=== PATIENT | female | born 1970 | race Caucasian/White ===

== ENCOUNTER → 2016-08-27 | Outpatient (CLI) | payer BC ==
--- NOTE | 2016-08-28 11:04 | MM ---
Reason for exam: screening (asymptomatic). Last mammogram was performed 1 year and 2 months ago. History: Patient had first child at age 37. Physical Findings: A clinical breast exam by your physician is recommended on an annual basis and results should be correlated with mammographic findings. MG Screening Mammo w CAD Bilateral CC and MLO view(s) were taken. Prior study comparison: July 05, 2015, left breast MG work up mamm w CAD LT. June 26, 2015, bilateral MG screening mammo w CAD. The breast tissue is extremely dense which could obscure a lesion on mammography. No significant changes when compared with prior studies. ASSESSMENT: Benign, BI-RAD 2 RECOMMENDATION: Routine screening mammogram of both breasts in 1 year.
== END | disposition home or self-care (01) ==
LOC: RADMAMWWP 14:56
PROVIDERS: ATTEND Family Medicine
DX: Z12.31 Encounter for screening mammogram for malignant neoplasm of breast (principal)

== ENCOUNTER → 2017-07-21 | Outpatient (CLI) | payer OTHER ==
--- NOTE | 2017-07-21 20:08 | MR ---
EXAMINATION TYPE: MR knee LT wo con DATE OF EXAM: 07/21/2017 COMPARISON: Outside radiographs 07/01/2012 HISTORY: 47-year-old female pain in left knee TECHNIQUE: Multiplanar, multisequence imaging of the left knee is performed without IV contrast. FINDINGS: There is prominent fluid signal along the ACL. The majority of the fibers are intact. There is some u ndulation of the far anterior most fibers suggesting a partial tear. PCL, MCL, and LCL complex are intact. There is thickening and heterogeneous signal of the anterior root of the medial meniscus. The remaind er of the meniscus remains intact. There is focal subchondral marrow signal changes and mild localize d edema along the periphery of the medial tibial plateau. Associated cartilage thinning. Measuring ap proximately 8 x 9 mm. There is a multilocular para meniscal cyst along the anterior root of the lateral meniscus measuring up to 1.2 cm. There is abnormal signal extending along the anterior horn of the lateral meniscus. No displaced or extruded meniscal fragments. Overall lateral compartment articular cartilage volume is m aintained. Patellofemoral compartment articular cartilage is maintained. Extensor mechanism is intact but with moderate intermediate signal of the mid deep patellar tendon fi bers at the patellar origin. Small knee joint effusion without Beltre's cyst. Nonspecific mild anterior infrapatellar subcutaneous soft tissue swelling. Normal popliteal artery anatomy and muscle bulk. No suspicious bone marrow replacement. IMPRESSION: 1. Undulation to the anterior most ACL fibers suggesting small partial thickness ACL tear. The majori ty of the ACL remains intact. 2. A 1.2 cm parameniscal cyst along the anterior horn of the lateral meniscus with associated partial anterior root tear extending into the anterior horn. 3. Extensive degenerative signal likely with a partial anterior root tear of the medial meniscus as w ell. There is focal moderate cartilage loss along the periphery of the medial compartment measuring 8 x 9 mm. 4. Mild to moderate proximal patellar tendinosis and small knee joint effusion.
== END | disposition home or self-care (01) ==
LOC: RADMRIMAIN 13:33
PROVIDERS: ATTEND Orthopaedic Surgery
DX: S83.282A Other tear of lateral meniscus, current injury, left knee, initial encounter (principal); M76.52 Patellar tendinitis, left knee

== ENCOUNTER → 2017-09-15 | Outpatient (CLI) | payer BC ==
--- NOTE | 2017-09-17 11:49 | MM ---
Reason for exam: screening (asymptomatic). Last mammogram was performed 1 year and 1 month ago. History: Patient had first child at age 37. Physical Findings: A clinical breast exam by your physician is recommended on an annual basis and results should be correlated with mammographic findings. MG Screening Mammo w CAD Bilateral CC and MLO view(s) were taken. Prior study comparison: August 27, 2016, bilateral MG screening mammo w CAD. July 05, 2015, left breast MG work up mamm w CAD LT. The breast tissue is heterogeneously dense. This may lower the sensitivity of mammography. No significant changes when compared with prior studies. ASSESSMENT: Negative, BI-RAD 1 RECOMMENDATION: Routine screening mammogram of both breasts in 1 year.
== END | disposition home or self-care (01) ==
LOC: RADMAMWWP 14:06
PROVIDERS: ATTEND Family Medicine
DX: Z12.31 Encounter for screening mammogram for malignant neoplasm of breast (principal)
CPT/HCPCS: 77067

== ENCOUNTER → 2018-08-10 | Outpatient (CLI) | payer BC ==
[2018-08-10 16:53] LABS: Basophils % (A) 0 %; Eosinophils # (A) 0.2 k/uL (0-0.7); Eosinophils % (A) 3 %; HCT 37.7 % (34.0-46.0); HGB 12.3 gm/dL (11.4-16.0); Lymphocytes # (A) 1.8 k/uL (1.0-4.8); Lymphocytes % (A) 23 %; MCH 29.6 pg (25.0-35.0); MCHC 32.7 g/dL (31.0-37.0); MCV 90.6 fL (80.0-100.0); Mean Platelet Volume 7.2; Monocytes # (A) 0.4 k/uL (0-1.0); Monocytes % (A) 6 %; Neutrophils # (A) 5.1 k/uL (1.3-7.7); Neutrophils % (A) 67 %; Platelet Count 241 k/uL (150-450); RBC 4.16 m/uL (3.80-5.40); WBC 7.6 k/uL (3.8-10.6)
[2018-08-10 17:04] LABS: Potassium 3.7 mmol/L (3.5-5.1)
== END ==
LOC: LABPAT 16:04
PROVIDERS: ATTEND Orthopaedic Surgery
DX: Z01.818 Encounter for other preprocedural examination (principal); Z01.812 Encounter for preprocedural laboratory examination; M23.92 Unspecified internal derangement of left knee
CPT/HCPCS: 36415; 80051; 85025; 93005

== ENCOUNTER → 2018-08-16 | Outpatient (CLI) | payer BC ==
--- NOTE | 2018-08-16 22:50 | MR ---
EXAMINATION TYPE: MR knee RT wo con DATE OF EXAM: 08/16/2018 COMPARISON: Outside right knee x-ray August 03, 2018 HISTORY: Rt knee pain per order. Outer pain and swelling after slipping injury per patient. TECHNIQUE: Multiplanar, multisequence images of the knee is performed without IV contrast. FINDINGS: MEDIAL MENISCUS: Anterior and posterior horns are intact without tear. LATERAL MENISCUS: Anterior and posterior horns are intact without tear. CRUCIATE LIGAMENTS: The anterior and posterior cruciate ligaments are intact. Anterior cruciate ligam ent shows slightly more vertical course and proximal thickening. COLLATERAL LIGAMENTS: The medial collateral ligament and lateral collateral ligament complex are inta ct and unremarkable. EXTENSOR MECHANISM: Visualized quadriceps and patellar tendons are intact. EFFUSION: There is small suprapatellar joint effusion. POPLITEAL CYST: No popliteal/antonio cyst. TRICOMPARTMENT SPACES: Mild spurring patellofemoral compartment. Tricompartment joint spaces are fair ly well-maintained. CARTILAGE: Tricompartment articular cartilage is fairly well preserved. No significant chondromalacia patella. BONE MARROW SIGNAL: A 1.1 cm oval T1 hypointense and T2 hyperintense heterogeneous lesion medial prox imal tibial metaphysis corresponds to sclerotic lesion on x-ray favored enchondroma or other benign e tiology. OTHER: Some increased fluid signal throughout Hoffa's fat pad is present with 8 mm thin-walled cyst i n the deep aspect sagittal image 19. IMPRESSION: Correlate for Hoffa's fat pad impingement syndrome. Mild degenerative changes. Small supr apatellar joint effusion. No meniscal or ligamentous tear is clearly seen.
== END | disposition home or self-care (01) ==
LOC: RADMRIMAIN 15:29
PROVIDERS: ATTEND Orthopaedic Surgery
DX: M17.11 Unilateral primary osteoarthritis, right knee (principal)

== ENCOUNTER → 2018-08-18 | Day surgery (SDC) | payer BC ==
[2018-08-13 15:23] VITALS: BMI 33.3
--- NOTE | 2018-08-17 14:23 | HP ---
HISTORY AND PHYSICAL DATE OF SURGERY: 08/18/2018 Cori Stone is a 48-year-old patient seen with progressive left knee pain. After treatment options were discussed, patient elected to proceed with arthroscopy. Consent was obtained. PAST MEDICAL HISTORY: Hypertension. PAST SURGICAL HISTORY: Wrist surgery. DAILY MEDICATIONS: Lisinopril. ALLERGIES: None. SOCIAL HISTORY: Patient denies tobacco use. PHYSICAL EVALUATION OF THE LEFT KNEE: Range of motion is 0 to 130 degrees. There is a mild effusion present. Tenderness along the medial and lateral joint lines. Positive medial Barbara's. Positive lateral Barbara's. Plus one Molina. Collateral ligament is stable, hip rotation without pain. Distal neurovascular exam intact. LEFT KNEE RADIOGRAPHS: Revealed mild osteoarthritic changes. Left knee MRI revealed medial and lateral meniscal tear as well as a partial anterior cruciate ligament tear. IMPRESSION: Internal derangement, left knee with medial and lateral meniscal tears. PLAN: Left knee arthroscopy with partial meniscectomy and debridement. MMODL / IJN: [id number] /
[~2018-08-18] MED LIST: BUPIVACAIN-EPI 0.25%-1:200,000 30 ML VIAL SQ ONE; DEXAMETHASONE SOD PHOSPHATE 10 MG/ML 1 ML VIAL IV ONE; HYDROmorphone 0.5 MG/0.5 ML SYRINGE IVP PRN; LACTATED RINGERS 1,000 ML IV SCH; LIDOCAINE 1% 20 ML VIAL (10MG/ML) FOR IV START INTRADERMA PRN; LIDOCAINE 1% INJ 10MG/ML (20 ML MDV) ONE; MIDAZOLAM 2 MG/2 ML VIAL ONE; ONDANSETRON 4 MG/2 ML VIAL IVP ONE; PROPOFOL 10 MG/ML 20 ML VIAL IV ONE; SCOPOLAMINE 1.5MG/72HR PATCH TRANSDERM ONE; ceFAZolin IN SWFI 2 GM/20 ML SYRINGE IVP ONE; fentaNYL (PF) 50 MCG/ML 2 ML AMP ONE
[2018-08-18 12:45] VITALS: RESP 16; TEMP 97.7
--- NOTE | 2018-08-18 12:46 | P.OP ---
Date of Procedure: 08/18/18 Preoperative Diagnosis: Internal derangement left knee Postoperative Diagnosis: 1. Tear medial meniscus left knee 2. Grade 2/3 chondromalacia medial femoral condyle left knee 3. Reactive synovitis medial, lateral and suprapatellar compartments left knee Procedure(s) Performed: 1. Arthroscopic partial medial meniscectomy left knee 2. Arthroscopic chondroplasty medial femoral condyle left knee 3. Arthroscopic partial synovectomy medial, lateral and suprapatellar left knee Anesthesia: LISAA, local Surgeon: Gonzalo Pate Estimated Blood Loss (ml): 8 Pathology: none sent Condition: stable Disposition: PACU Indications for Procedure: 48-year-old patient seen with progressive left knee pain. After having treatment options discussed, she elected to proceed with arthroscopy. Operative Findings: See description of procedure Description of Procedure: Patient was taken to the operative suite. Patient underwent a general anesthetic by the department of anesthesia. Patient was given preoperative antibiotics. The left lower extremity was placed in a well-padded arthroscopic leg dent. The left leg was prepped and draped in the normal sterile orthopedic fashion. A lateral parapatellar and suprapatellar incision was made. Trochars were inserted. Arthroscopy was initiated. Suprapatellar pouch revealed diffuse thick reactive synovitis. The patellofemoral joint appeared to articulate congruently. There as grade 1 chondromalacia the patella. The scope was guided into the medial gutter. No loose bodies or plica were identified. The scope was then guided into the medial compartment. A medial parapatellar incision was made. Trocar inserted followed by probe. There was a complex tear involving the posterior horn medial meniscus. There were grade 2/3 chondromalacia changes the medial femoral condyle with some osteochondral tears present. There was thick reactive synovitis anteriorly. I performed a partial medial meniscectomy down to stable tissue. I performed a chondroplasty of the medial femoral condyle down to stable tissue I performed a partial synovectomy decompressing the reactive synovitis. The residual meniscus was stable. The residual osteochondral surface was stable. There was good decompression of the synovitis. Scope and probe were then guided into the intercondylar notch. Cruciates were identified, probed and found to be stable. The scope and probe were then guided into lateral compartment. There was some mild superficial fraying of the lateral meniscus midbody area. There was reactive synovitis anteriorly. There is mild grade 1 chondral malacia changes. No osteochondral tears were present. I debrided the superficial fraying with a motorized shaver. I performed a partial synovectomy decompressing the reactive synovitis. The shaver was removed. There was good decompression of the synovitis. The scope was in guided back into the suprapatellar compartment. I introduced a motorized shaver into the super patellar compartment. I debrided some piecemeal fragments of meniscus I encountered. I performed a partial synovectomy. The shaver was removed. There was good decompression of synovitis. I took one more look on the entire knee, no residual debris. Instruments were now removed from the joint. The joint was infiltrated with .25% Marcaine. Steri-Strips were applied to the portal sites. Sterile dressings were applied. The patient was placed into a SHANI hose. No tourniquet was utilized. The patient was awakened, transferred to a bed and taken to recovery stable satisfactory condition.
[2018-08-18 13:57] VITALS: BP 124/81; PULSE 81
== END | disposition home or self-care (01) ==
LOC: OR 09:48
PROVIDERS: ATTEND Orthopaedic Surgery
DX: S83.242A Other tear of medial meniscus, current injury, left knee, initial encounter (principal); X58.XXXA Exposure to other specified factors, initial encounter; M94.262 Chondromalacia, left knee; M65.862 Other synovitis and tenosynovitis, left lower leg; I10 Essential (primary) hypertension; Z79.899 Other long term (current) drug therapy; Z79.1 Long term (current) use of non-steroidal anti-inflammatories (NSAID)
CPT/HCPCS: 81025; 29881; 29876; J2250; J1100; J2405; J2001; J3010; J2704; J1170; J0690

== ENCOUNTER → 2019-09-19 | Outpatient (CLI) | payer BC ==
--- NOTE | 2019-09-21 11:03 | MM ---
Reason for exam: screening (asymptomatic). Last mammogram was performed 2 years ago. History: Patient had first child at age 37. Physical Findings: A clinical breast exam by your physician is recommended on an annual basis and results should be correlated with mammographic findings. MG Screening Mammo w CAD Bilateral CC and MLO view(s) were taken. Prior study comparison: September 15, 2017, bilateral MG screening mammo w CAD. August 27, 2016, bilateral MG screening mammo w CAD. The breast tissue is heterogeneously dense. This may lower the sensitivity of mammography. No significant changes when compared with prior studies. ASSESSMENT: Negative, BI-RAD 1 RECOMMENDATION: Routine screening mammogram of both breasts in 1 year.
== END | disposition home or self-care (01) ==
LOC: RADMAMWWP 14:06
PROVIDERS: ATTEND Obstetrics & Gynecology
DX: Z12.31 Encounter for screening mammogram for malignant neoplasm of breast (principal)
CPT/HCPCS: 77067

== ENCOUNTER 2019-11-11 10:38 | Emergency (ER) | payer BC ==
[2019-11-11 10:47] VITALS: BP 117/80; PULSE 80; RESP 18; TEMP 98.3
[2019-11-11] MEDS ORDERED: KETOROLAC 15 MG/ML 1 ML VIAL IM STA (11:20)
--- NOTE | 2019-11-11 11:34 | ED ---
Back Pain HPI - General Chief Complaint: Back Pain/Injury Stated Complaint: Back pain Passing out Time Seen by Provider: 11/11/19 10:54 Source: patient Limitations: no limitations - History of Present Illness Initial Comments: Patient is a 49-year-old female presenting to emergency Department with complaints of right-sided sciatic pain that has been increasing over the past few weeks. Patient states she has dealt with this over the past 10 years with mild flareups here and there. Patient states last few weeks she has noticed that the pain has been increasing, she did go to her PCP last week and did receive a pain injection as well as started on a steroid Dosepak. Patient states the pain did improve very slightly but then last 2 days has increased again. Patient states she did go to a chiropractor this week and feels like that worsened her symptoms. She's been trying ice and heat to the area without relief. She denies any falls or trauma. She did state that today when she was in the shower after she got out she feels that she might a passed out secondary to the pain. She denies any other injuries from this fall. She states that her PCP did send her a prescription for physical therapy which she is awaiting an appointment for. She denies any bowel or bladder incontinence, any fever or chills. She denies any abdominal pain, nausea or vomiting. She has no further complaints at this time. Upon arrival to the ER, her vital signs are stable. - Related Data Home Medications Medication Instructions Recorded Confirmed HYDROcodone/APAP 10-325MG [[place] 1 tab PO DIRECTED PRN 08/13/18 08/18/18 10-325] Ibuprofen [Motrin] 800 mg PO BID 08/18/18 08/18/18 Previous Rx's Medication Instructions Recorded Cyclobenzaprine [Flexeril] 5 mg PO BID PRN #10 tablet 11/11/19 predniSONE [Deltasone] 20 mg PO BID 5 Days #10 tab 11/11/19 Allergies Allergy/AdvReac Type Severity Reaction Status Date / Time No Known Allergies Allergy Verified 11/11/19 10:47 Review of Systems ROS Statement: Those systems with pertinent positive or pertinent negative responses have been documented in the HPI. ROS Other: All systems not noted in ROS Statement are negative. Past Medical History Past Medical History: Hypertension History of Any Multi-Drug Resistant Organisms: None Reported Past Surgical History: Orthopedic Surgery Additional Past Surgical History / Comment(s): knee, wrist Past Psychological History: Anxiety Smoking Status: Never smoker Past Alcohol Use History: None Reported Past Drug Use History: None Reported General Exam - General Exam Comments Initial Comments: GENERAL: Patient is well-developed and well-nourished. Patient is nontoxic and in no acute distress. HEAD: Atraumatic, normocephalic. EYES: Pupils equal round and reactive to light, extraocular movements intact, sclera anicteric, conjunctiva are normal. Eyelids were unremarkable. ENT: TMs normal, nares patent, oropharynx clear without exudates. Moist mucous membranes. NECK: Normal range of motion, supple without lymphadenopathy or JVD. LUNGS: Unlabored respirations. Breath sounds clear to auscultation bilaterally and equal. No wheezes rales or rhonchi. HEART: Regular rate and rhythm without murmurs, rubs or gallops. ABDOMEN: Soft, nontender, normoactive bowel sounds. No guarding, no rebound. No masses appreciated. : Deferred MUSCULOSKELETAL: Patient has full strength of her lower extremities bilaterally, sensation is equal and bilateral. She has strong glue contraction bilaterally. Patient is tender to palpation of the right sciatic area. No clubbing or cyanosis. NEUROLOGICAL: Patient is alert and oriented x 3. Motor and sensory are also intact. Symmetrical smile. Normal speech, normal gait. PSYCH: Normal mood, normal affect. SKIN: Warm, Dry, normal turgor, no rashes or lesions noted. Limitations: no limitations Course Vital Signs 11/11/19 10:41 Temperature 98.3 F Pulse Rate 80 Respiratory 18 Rate Blood Pressure 117/80 O2 Sat by Pulse 99 Oximetry Medical Decision Making - Medical Decision Making Patient is a 41-year-old female here for increasing right sciatic pain over the past few weeks. She did go to her PCP and received Toradol and steroid Dosepak. Patient denies taking any other pain medicines at home however I did check her MAPS and she does have a prescription for [place] 10's she gets monthly from her PCP. X-rays of her lumbar area revealed no acute fractures, dislocations, normal alignment. I did give patient Toradol injection today. We'll also restart her on a steroid treatment and give a short prescription for muscle relaxer. Recommended following back up with PCP for possible physical therapy. Continue with alternating heat and ice to the area, gentle stretching. Patient stable for discharge, she is in agreement with this plan of care. Return parameters were discussed with the patient she verbalized understanding. - EKG Data EKG Comments: Normal sinus rhythm, normal ECG, no signs of acute ischemia. Ventricular rate 74, ND interval 150, QTC 408. Disposition Clinical Impression: Right sciatic nerve pain Disposition: HOME SELF-CARE Condition: Stable Instructions (If sedation given, give patient instructions): Sciatica (ED) Additional Instructions: Please return to the Emergency Department if symptoms worsen or any other concerns. Take steroids as prescribed, may try muscle relaxer at night for relief. Follow-up with PCP, for PT, as discussed. Prescriptions: predniSONE [Deltasone] 20 mg PO BID 5 Days #10 tab Cyclobenzaprine [Flexeril] 5 mg PO BID PRN #10 tablet PRN Reason: Muscle Spasm Is patient prescribed a controlled substance at d/c from ED?: No Referrals: Ramon Burgess MD [Primary Care Provider] - 1-2 days
--- NOTE | 2019-11-11 12:03 | XR ---
EXAMINATION TYPE: XR lumbar spine 2 or 3V DATE OF EXAM: 11/11/2019 Comparison: None Clinical History: 49-year-old female pain Findings: 5 lumbar type vertebral bodies. Vertebral body heights are preserved and alignment is maintained. Mil d facet arthropathy lower lumbar spine. Disc interspaces relatively maintained. Impression: Mild facet arthropathy lower lumbar spine. No vertebral compression collapse or malalignment.
== END 2019-11-11 12:34 | disposition home or self-care (01) ==
LOC: EC 10:38
DX: M54.31 Sciatica, right side (principal); X58.XXXA Exposure to other specified factors, initial encounter
CPT/HCPCS: 99283 ×2; 96372 ×2; 93005; 72100; J1885

== ENCOUNTER → 2019-12-30 | Outpatient (CLI) | payer BC ==
--- NOTE | 2019-12-30 09:13 | MR ---
EXAMINATION TYPE: MR lumbar spine wo con DATE OF EXAM: 12/30/2019 COMPARISON: Plain film 11/11/2019 HISTORY: Low back pain into rt leg since October TECHNIQUE: Multiplanar, multisequence images of the lumbar spine were acquired. L1-L2: Normal disc appearance without desiccation. No herniation, protrusion or disc bulging. No ca nal stenosis is present. Foramina are patent bilaterally. L2-L3: Normal disc appearance without desiccation. No herniation, protrusion or disc bulging. No ca nal stenosis is present. Foramina are patent bilaterally. L3-L4: Normal disc appearance without desiccation. No herniation, protrusion or disc bulging. No ca nal stenosis is present. Foramina are patent bilaterally. L4-L5: Normal disc appearance without desiccation. No herniation, protrusion or disc bulging. No ca nal stenosis is present. Foramina are patent bilaterally. L5-S1: There is loss of disc height and signal present, right posterior paracentral disc protrusion i s present possibly contacting the proximal S1 nerve root, there is some mild deformity of the anterol ateral thecal sac. Lumbar segments are intact. No paraspinal masses are identified. Conus medullaris has a normal appe arance. Lumbar vertebral bodies show preserved height, alignment, bone marrow signal is remarkable fo r hemangiomas within the L2, T12 vertebral bodies, focal areas of increased signal on T1 and T2-weigh barb sequences. Mild spondylosis, endplate discogenic marrow signal changes are present. IMPRESSION: Disc protrusion L5-S1, correlate for right S1 radiculopathy.
== END | disposition home or self-care (01) ==
LOC: RADMRIMAIN 07:32
PROVIDERS: ATTEND Family Medicine
DX: M51.17 Intervertebral disc disorders with radiculopathy, lumbosacral region (principal)
CPT/HCPCS: 72148

== ENCOUNTER 2020-02-23 06:26 | Day surgery (SDC) | payer BC ==
[2020-02-21 14:22] VITALS: BMI 31.7
[~2020-02-23 06:26] MED LIST changes: -BUPIVACAIN-EPI 0.25%-1:200,000 30 ML VIAL SQ ONE; -DEXAMETHASONE SOD PHOSPHATE 10 MG/ML 1 ML VIAL IV ONE; -HYDROmorphone 0.5 MG/0.5 ML SYRINGE IVP PRN; -LIDOCAINE 1% 20 ML VIAL (10MG/ML) FOR IV START INTRADERMA PRN; -LIDOCAINE 1% INJ 10MG/ML (20 ML MDV) ONE; -MIDAZOLAM 2 MG/2 ML VIAL ONE; -ONDANSETRON 4 MG/2 ML VIAL IVP ONE; -PROPOFOL 10 MG/ML 20 ML VIAL IV ONE; -SCOPOLAMINE 1.5MG/72HR PATCH TRANSDERM ONE; -ceFAZolin IN SWFI 2 GM/20 ML SYRINGE IVP ONE; -fentaNYL (PF) 50 MCG/ML 2 ML AMP ONE
[2020-02-23 06:57] VITALS: TEMP 98.1
[2020-02-23] MEDS ORDERED: LIDOCAINE 1% (10MG/ML) FOR IV START INTRADERMA ONE (06:59)
[2020-02-23] MEDS ORDERED: MIDAZOLAM 2 MG/2 ML VIAL ONE (07:06)
[2020-02-23] MEDS ORDERED: methylPREDNISolone ACETATE 80 MG/ML 1 ML VIAL ONE (07:06)
[2020-02-23] MEDS ORDERED: IOPAMIDOL M200 10 ML VIAL ONE (07:06)
[2020-02-23] MEDS ORDERED: ROPIVACAINE 5MG/ML 20ML VIAL ONE (07:06)
[2020-02-23] MEDS ORDERED: fentaNYL (PF) 50 MCG/ML 2 ML AMP ONE (07:06)
[2020-02-23] MEDS ORDERED: IV FLUID CONTINUATION 1,000 ML IV ONE (07:24)
--- NOTE | 2020-02-23 07:24 | P.PCN ---
Date of Procedure: 02/23/20 Procedure(s) Performed: PREOPERATIVE DIAGNOSIS: Lumbar radiculopathy . POSTOPERATIVE DIAGNOSIS: Same as preoperative diagnoses. PROCEDURE 1. Transforaminal epidural steroid injection under fluoroscopic guidance at right L5-S1 level. (Fluoroscopy images stored on file in the radiology Department ) 2. Lumbar epidurogram . ANESTHESIA: Local with 1% lidocaine 3 ml , moderate sedation with intravenous Versed 2 mg and fentanyle 50 micrograms. EBL: Minimal PROCEDURE INDICATION: The patient with low back pain and radiculopathy symptoms unresponsive to conservative treatment. PROCEDURE DESCRIPTION / TECHNIQUE: The patient was seen and identified in the preoperative area. Risks, benefits, complications, and alternatives were discussed with the patient. The patient agreed to proceed with the procedure and signed the consent. IV was started, and vital signs were stable. Patient was taken to the OR and time out was completed. The patient was placed in the prone position on procedure table and a pillow was placed under the abdomen to reduce lumbar lordosis. The lumbosacral area was prepped and draped in the usual sterile fashion. Critical pause was taken. Vital signs were closely monitored during the procedure. Conscious sedation was used during the procedure to decrease patient s anxiety. Using oblique fluoroscopy, the chin of the ``Loc dog at Right L5-S1 level was identified, and the skin and deeper tissues just below was localized with 1% lidocaine. Subsequently, a 22-gauge 3.5-inch spinal needle was advanced under a tunneled view fluoroscopic guidance just underneath the chin of the ``Loc dog at the right L5-S1 Under lateral fluoroscopy, the needle was then advanced to the posterior border of the interforaminal space. After negative aspiration of CSF and blood and with no paresthesias, 1 mL Isovue 200 contrast dye was injected excellent epidurogram and outlining of the nerve root Subsequently, 3 mL of block solution containing 80 mg Depo-Medrol and 2 mL of 0.9% normal saline PF was injected. Needle was removed . At the end of the procedure, skin was cleansed, and bandages were applied. COMPLICATIONS:none DISPOSITION / PLANS: The patient was placed in a supine position and transferred to the recovery area in a stable condition for observation. There was no evidence of lower extremity motor or sensory deficit after the procedure. Patient was discharged from the recovery room after meeting discharge criteria. Home discharge instructions were given to the patient by the staff. The patient was reexamined prior to discharge.
[2020-02-23 07:28] VITALS: RESP 14
[2020-02-23 07:38] VITALS: BP 112/72; PULSE 65
--- NOTE | 2020-02-23 09:21 | FL ---
EXAMINATION TYPE: FL guided pain mgmt statistic DATE OF EXAM: 02/23/2020 HISTORY: Fluoroscopy time 5 seconds of fluoroscopy provided. IMPRESSION: 1. Fluoroscopy time.
== END 2020-02-23 07:55 ==
LOC: ORPAIN 06:26
PROVIDERS: ATTEND Specialist
DX: M54.16 Radiculopathy, lumbar region (principal)
CPT/HCPCS: 81025; 64483; J2250; J1040; J3010; Q9966; J2795

== ENCOUNTER 2020-03-23 08:37 | Day surgery (SDC) | payer BC ==
[2020-03-20 15:18] VITALS: BMI 31.6
[2020-03-23 08:56] VITALS: TEMP 97.8
[2020-03-23] MEDS ORDERED: MIDAZOLAM 2 MG/2 ML VIAL ONE (09:45)
[2020-03-23] MEDS ORDERED: methylPREDNISolone ACETATE 40 MG/ML 1 ML VIAL ONE (09:45)
[2020-03-23] MEDS ORDERED: IOPAMIDOL M200 10 ML VIAL ONE (09:45)
[2020-03-23] MEDS ORDERED: fentaNYL (PF) 50 MCG/ML 2 ML AMP ONE (09:45)
--- NOTE | 2020-03-23 10:00 | P.PCN ---
Date of Procedure: 03/23/20 Procedure(s) Performed: PREOPERATIVE DIAGNOSIS: Lumbar radiculopathy . POSTOPERATIVE DIAGNOSIS: Same as preoperative diagnoses. PROCEDURE 1. Transforaminal epidural steroid injection under fluoroscopic guidance at right L5-S1 level. (Fluoroscopy images stored on file in the radiology Department ) 2. Lumbar epidurogram . # 2nd ANESTHESIA: Local with 1% lidocaine 3 ml , moderate sedation with intravenous Versed 2 mg and fentanyle 100 micrograms. EBL: Minimal PROCEDURE INDICATION: The patient with low back pain and radiculopathy symptoms unresponsive to conservative treatment. PROCEDURE DESCRIPTION / TECHNIQUE: The patient was seen and identified in the preoperative area. Risks, benefits, complications, and alternatives were discussed with the patient. The patient agreed to proceed with the procedure and signed the consent. IV was started, and vital signs were stable. Patient was taken to the OR and time out was completed. The patient was placed in the prone position on procedure table and a pillow was placed under the abd omen to reduce lumbar lordosis. The lumbosacral area was prepped and draped in the usual sterile fashion. Critical pause was taken. Vital signs were closely monitored during the procedure. Conscious sedation was used during the procedure to decrease patient s anxiety. Using oblique fluoroscopy, the chin of the `Congy dog at Right L5-S1 level was identified, and the skin and deeper tissues just below was localized with 1% lidocaine. Subsequently, a 22-gauge 3.5-inch spinal needle was advanced under a tunneled view fluoroscopic guidance just underneath the chin of the `Congy dog at the right L5-S1 Under lateral fluoroscopy, the needle was then advanced to the posterior border of the interforaminal space. After negative aspiration of CSF and blood and with no paresthesias, 1 mL Isovue 200 contrast dye was injected excellent epidurogram and outlining of the nerve root Subsequently, 3 mL of block solution containing 80 mg Depo-Medrol and 2 mL of 0.9% normal saline PF was injected. Needle was removed . At the end of the procedure, skin was cleansed, and bandages were applied. COMPLICATIONS:none DISPOSITION / PLANS: The patient was placed in a supine position and transferred to the recovery area in a stable condition for observation. There was no evidence of lower extremity motor or sensory deficit after the procedure. Patient was discharged from the recovery room after meeting discharge criteria. Home discharge instructions were given to the patient by the staff. The patient was reexamined prior to discharge.
[2020-03-23] MEDS ORDERED: IV FLUID CONTINUATION 800 ML IV ONE (10:05)
[2020-03-23 10:23] VITALS: RESP 16
[2020-03-23 10:25] VITALS: BP 111/64; PULSE 53
--- NOTE | 2020-03-23 11:09 | FL ---
Fluoroscopy HISTORY: Pain 5 seconds fluoroscopy time supplied to the referring clinician. 1 intraoperative C-arm images docume nt the procedure. See dictated report from anesthesia.
== END 2020-03-23 10:41 | disposition home or self-care (01) ==
LOC: ORPAIN 08:37
PROVIDERS: ATTEND Specialist
DX: M54.16 Radiculopathy, lumbar region (principal)
CPT/HCPCS: 81025; 64483; J2250; J1030; J3010; Q9966

== ENCOUNTER → 2020-06-14 | Outpatient (CLI) | payer BC ==
--- NOTE | 2020-06-14 23:13 | MR ---
EXAMINATION TYPE: MR knee RT wo con DATE OF EXAM: 06/14/2020 COMPARISON: 08/16/2018 HISTORY: Right knee pain Multiplanar Multiecho imaging of the right knee was performed without contrast. the anterior and posterior cruciate ligaments are intact. There is a mild knee joint effusion. There is 9 mm rounded fluid collection anterior to the lateral femoral condyle consistent with a synovial c yst. The collateral ligaments are intact. The lateral meniscus is intact. There is vertical defect through the anterior horn of the medial meni scus. Medial meniscus is slightly irregular involving the anterior and posterior horns. There is 1 x 1.5 cm rounded area of mixed signal in the medial tibial condyle. This could be ossifying fibroma. Un changed. I see no fracture line. IMPRESSION: There is knee joint effusion and synovial cyst not significantly different than old exam. There is ve rtical and horizontal tear of the anterior horn medial meniscus which appears new compared to old ester mckay
== END | disposition home or self-care (01) ==
LOC: RADMRIMAIN 16:44
PROVIDERS: ATTEND Orthopaedic Surgery
DX: S83.241A Other tear of medial meniscus, current injury, right knee, initial encounter (principal); M71.38 Other bursal cyst, other site

== ENCOUNTER 2020-07-13 07:52 | Day surgery (SDC) | payer BC ==
[2020-07-12 09:12] VITALS: BMI 31.6
[2020-07-13 08:18] VITALS: TEMP 97.2
[2020-07-13] MEDS ORDERED: LACTATED RINGERS 1,000 ML IV ONE (08:30)
[2020-07-13] MEDS ORDERED: LIDOCAINE 1% (10MG/ML) FOR IV START INTRADERMA ONE (08:31)
[2020-07-13] MEDS ORDERED: fentaNYL (PF) 50 MCG/ML 2 ML AMP ONE (09:00)
[2020-07-13] MEDS ORDERED: MIDAZOLAM 2 MG/2 ML VIAL ONE (09:00)
[2020-07-13] MEDS ORDERED: DEXAMETHASONE SOD PHOSPHATE 10 MG/ML 1 ML VIAL ONE (09:00)
[2020-07-13] MEDS ORDERED: IOPAMIDOL M200 10 ML VIAL ONE (09:00)
--- NOTE | 2020-07-13 09:10 | P.PCN ---
Date of Procedure: 07/13/20 Description of Procedure: PROCEDURE 1. Transforaminal epidural steroid injection under fluoroscopic guidance at right L5-S1 level. (Fluoroscopy images stored on file in the radiology Department ) ANESTHESIA: Local with 1% lidocaine 3 ml , MAC with anesthesia team EBL: Minimal PROCEDURE INDICATION: The patient with low back pain and radiculopathy symptoms unresponsive to conservative treatment. PROCEDURE DESCRIPTION / TECHNIQUE: The patient was seen and identified in the preoperative area. Risks, benefits, complications, and alternatives were discussed with the patient. The patient agreed to proceed with the procedure and signed the consent. IV was started, and vital signs were stable. Patient was taken to the OR and time out was completed. The patient was placed in the prone position on procedure table and a pillow was placed under the abdomen to reduce lumbar lordosis. The lumbosacral area was prepped and draped in the usual sterile fashion. Critical pause was taken. Vital signs were closely monitored during the procedure. Conscious sedation was used during the procedure to decrease patient s anxiety. Using oblique fluoroscopy, the chin of the `Shannan dog at Right L5-S1 level was identified, and the skin and deeper tissues just below was localized with 1% lidocaine. Subsequently, a 22-gauge 3.5-inch spinal needle was advanced under a tunneled view fluoroscopic guidance just underneath the chin of the `Shannan dog at the right L5-S1 Under lateral fluoroscopy, the needle was then advanced to the posterior border of the interforaminal space. After negative aspiration of CSF and blood and with no paresthesias, 1 mL Isovue 200 contrast dye was injected excellent epidurogram and outlining of the nerve root Subsequently, 2 mL of block solution containing 10 mg dexamethasone and 1 mL of 1% lidocaine was injected. Needle was removed . At the end of the procedure, skin was cleansed, and bandages were applied. COMPLICATIONS:none DISPOSITION / PLANS: The patient was placed in a supine position and transferred to the recovery area in a stable condition for observation. There was no evidence of lower extremity motor or sensory deficit after the procedure. Patient was discharged from the recovery room after meeting discharge criteria. Home discharge instructions were given to the patient by the staff. The patient was reexamined prior to discharge.
[2020-07-13] MEDS ORDERED: IV FLUID CONTINUATION 1,000 ML IV ONE ×2 (09:14)
[2020-07-13 09:41] VITALS: BP 100/66; PULSE 64; RESP 16
--- NOTE | 2020-07-13 10:21 | FL ---
EXAMINATION TYPE: FL guided pain mgmt statistic DATE OF EXAM: 07/13/2020 CLINICAL HISTORY: Low back pain. TECHNIQUE: Fluoroscopy. COMPARISON: None. FINDINGS: Fluoroscopic guidance was provided during pain relief procedure performed by Dr. Juan. A total of 7 seconds of fluoroscopic time was utilized during the procedure and 0 spot images are janice ed to PACS. IMPRESSION: As Above.
== END 2020-07-13 09:47 | disposition home or self-care (01) ==
LOC: ORPAIN 07:52
PROVIDERS: ATTEND Anesthesiology
DX: M51.16 Intervertebral disc disorders with radiculopathy, lumbar region (principal); I10 Essential (primary) hypertension; F41.9 Anxiety disorder, unspecified; Z79.1 Long term (current) use of non-steroidal anti-inflammatories (NSAID); Z79.899 Other long term (current) drug therapy
CPT/HCPCS: 81025; 64483; J2250; J1100; J3010; Q9966

== ENCOUNTER → 2020-12-06 | Outpatient (CLI) | payer BC ==
[2020-12-06 11:00] LABS: Potassium 3.3 mmol/L (3.5-5.1)
[2020-12-06 11:36] LABS: Basophils # (A) 0.1 k/uL (0-0.2); Basophils % (A) 1 %; Eosinophils # (A) 0.2 k/uL (0-0.7); Eosinophils % (A) 2 %; HGB 13.7 gm/dL (11.4-16.0); Lymphocytes # (A) 2.7 k/uL (1.0-4.8); Lymphocytes % (A) 34 %; MCH 31.4 pg (25.0-35.0); MCV 89.7 fL (80.0-100.0); Mean Platelet Volume 8.3; Monocytes # (A) 0.5 k/uL (0-1.0); Monocytes % (A) 6 %; Neutrophils # (A) 4.3 k/uL (1.3-7.7); Neutrophils % (A) 55 %; Platelet Count 308 k/uL (150-450); RBC 4.35 m/uL (3.80-5.40); RDW 13.1 % (11.5-15.5); WBC 7.8 k/uL (3.8-10.6)
== END | disposition home or self-care (01) ==
LOC: LABPAT 09:30
PROVIDERS: ATTEND Orthopaedic Surgery
DX: Z01.818 Encounter for other preprocedural examination (principal); M23.91 Unspecified internal derangement of right knee
CPT/HCPCS: 36415; 80051; 85025; 93005

== ENCOUNTER 2020-12-20 09:47 | Day surgery (SDC) | payer BC ==
[2020-12-18 15:18] VITALS: BMI 30.9
--- NOTE | 2020-12-19 16:32 | HP ---
HISTORY AND PHYSICAL DATE OF SURGERY: 12/20/2020 Cori Stone is a 50-year-old patient seen with progressive right knee pain. After treatment options were discussed, the patient elected to proceed with right knee arthroscopy. Consent is obtained. PAST MEDICAL HISTORY: Hypertension. SURGICAL HISTORY: Wrist surgery. MEDICATIONS ARE: Lisinopril, ibuprofen, [place]. ALLERGIES: None. SOCIAL HISTORY: The patient denies tobacco use. PHYSICAL EVALUATION OF THE RIGHT KNEE: Range of motion 0 to 130. Mild effusion. There is tenderness along the medial joint line with positive medial Barbara's. Ligaments are stable. Hip rotation without pain. Distal neurovascular exam is intact. RADIOGRAPHS: Radiographs of the right knee revealed moderate osteoarthritis. Right knee MRI revealed medial meniscal tear, effusion and synovial cyst. IMPRESSION: 1. Internal derangement of right knee with medial meniscal. 2. Hypertension. PLAN: Right knee arthroscopy with partial meniscectomy and debridement. MMODL / IJN: [id number] /
[~2020-12-20 09:47] MED LIST changes: +DEXAMETHASONE SOD PHOSPHATE 4 MG/ML 1 ML VIAL IV ONE; +HYDROmorphone 0.5 MG/0.5 ML SYRINGE IVP PRN; +ONDANSETRON 4 MG/2 ML VIAL IVP ONE
[2020-12-20] MEDS ORDERED: LIDOCAINE 1% (10MG/ML) FOR IV START INTRADERMA ONE (10:25)
[2020-12-20] MEDS ORDERED: SUCCINYLCHOLINE CHLORIDE 100 MG/5 ML SYR IV ONE (11:04)
[2020-12-20] MEDS ORDERED: fentaNYL (PF) 50 MCG/ML 2 ML AMP ONE (11:04)
[2020-12-20] MEDS ORDERED: LIDOCAINE 1% INJ 10MG/ML (20 ML MDV) ONE (11:04)
[2020-12-20] MEDS ORDERED: MIDAZOLAM 2 MG/2 ML VIAL ONE (11:04)
[2020-12-20] MEDS ORDERED: PROPOFOL 10 MG/ML 20 ML VIAL IV ONE (11:04)
[2020-12-20] MEDS ORDERED: BUPIVACAINE (PF) 0.25% 30 ML VIAL INTRAARTIC ONE (11:09)
--- NOTE | 2020-12-20 11:52 | P.OP ---
Date of Procedure: 12/20/20 Preoperative Diagnosis: Internal derangement right knee Postoperative Diagnosis: 1. Tear medial meniscus right knee 2. Grade 2 chondromalacia medial femoral condyle right knee 3. Reactive synovitis medial, lateral and suprapatellar compartments right knee Procedure(s) Performed: 1. Arthroscopic partial medial meniscectomy right knee 2. Arthroscopic chondroplasty medial femoral condyle right knee 3. Arthroscopic partial synovectomy medial, lateral and suprapatellar compartments right knee Anesthesia: LISAA, local Surgeon: Gonzalo Pate Estimated Blood Loss (ml): 5 Pathology: none sent Condition: stable Disposition: PACU Indications for Procedure: 50-year-old patient seen with progressive right knee pain. After having treatment options discussed, she elected to proceed with arthroscopy. Operative Findings: See description of procedure Description of Procedure: Patient was taken to the operative suite. Patient underwent a general anesthetic by the department of anesthesia. Patient was given preoperative antibiotics. The right lower extremity was placed in a well-padded arthroscopic leg dent. The right leg was prepped and draped in the normal sterile orthopedic fashion. A lateral parapatellar and suprapatellar incision was made. Trochars were inserted. Arthroscopy was initiated. Suprapatellar pouch revealed diffuse thick reactive synovitis. The patellofemoral joint appeared to articulate congruently. There was grade 1 chondromalacia with no osteochondral tears present. The scope was guided into the medial gutter. No loose bodies or plica were identified. The scope was then guided into the medial compartment. A medial parapatellar incision was made. Trocar inserted followed by probe. There was a complex tear posterior horn medial meniscus. There were grade 2 chondromalacia changes of the medial femoral condyle with some small osteochondral tears present. There was thick reactive synovitis anteriorly. I performed a partial medial meniscectomy getting down to stable meniscal tissue. I performed a chondroplasty of the medial femoral condyle getting down to stable osteochondral tissue. I performed a partial synovectomy decompressing the thick reactive synovitis. The residual meniscus was probed and found to be stable. The residual osteochondral surface of the medial femoral condyle was stable. There was good decompression of the synovitis. Scope and probe were then guided into the intercondylar notch. Cruciates were identified, probed and found to be stable. The scope and probe were then guided into lateral compartment. The lateral meniscus was probed and found to be stable. There was no significant chondromalacia involving lateral compartment. There was some thick reactive synovitis anteriorly. I introduced a motorized shaver and performed a partial synovectomy. The shaver was removed. There was good decompression of the synovitis. The scope was in guided back into the suprapatellar compartment. I introduced a motorized shaver into the suprapatellar compartment. I debrided some piecemeal fragments of meniscus that I encountered. I performed a partial synovectomy decompressing the thick reactive synovitis. The shaver was removed. There was good decompression of the synovitis. I now took one more look around the entire knee, no residual debris. Instruments were now removed from the joint. The joint was infiltrated with .25% Marcaine. Steri-Strips were applied to the portal sites. Sterile dressings were applied. The patient was placed into a SHANI hose. No tourniquet was utilized. The patient was awakened, transferred to a bed and taken to recovery stable satisfactory condition.
[2020-12-20 11:53] VITALS: TEMP 97.3
[2020-12-20] MEDS ORDERED: KETOROLAC 15 MG/ML 1 ML VIAL ONE (12:30)
[2020-12-20] MEDS ORDERED: KETOROLAC 15 MG/ML 1 ML VIAL IVP ONE (12:32)
[2020-12-20] MEDS ORDERED: ONDANSETRON 4 MG/2 ML VIAL ONE (13:11)
[2020-12-20] MEDS ORDERED: ONDANSETRON 4 MG/2 ML VIAL IVP ONE (13:14)
[2020-12-20 13:39] VITALS: PULSE 88
[2020-12-20 14:07] VITALS: BP 128/74; RESP 18
== END 2020-12-20 14:09 | disposition home or self-care (01) ==
LOC: OR 09:47
PROVIDERS: ATTEND Orthopaedic Surgery
DX: S83.241A Other tear of medial meniscus, current injury, right knee, initial encounter (principal); I10 Essential (primary) hypertension; M94.261 Chondromalacia, right knee; M65.9 Synovitis and tenosynovitis, unspecified
CPT/HCPCS: 29881; 29876; 81025; 80051; J2250; J1100; J0690; J2405; J2001; J3010; J1885; J0330; J2704; J1170

== ENCOUNTER → 2021-05-17 | Outpatient (CLI) | payer BC ==
[2021-05-18 00:30] LABS: Carbon Dioxide 26.2 mmol/L (20.0-27.5); Potassium 2.8 mmol/L (3.5-5.5)
[2021-05-18 01:34] LABS: Basophils # (A) 0.05 X 10*3/uL (0.00-0.10); Basophils % (A) 0.6 %; Eosinophils # (A) 0.21 X 10*3/uL (0.04-0.35); Eosinophils % (A) 2.5 %; HCT 39.8 % (37.2-46.3); HGB 12.5 g/dL (12.0-15.0); Immature Grans, Automated 0.6 %; Lymphocytes # (A) 2.49 X 10*3/uL (0.90-5.00); Lymphocytes % (A) 29.6 %; MCH 29.8 pg (27.0-32.0); MCHC 31.4 g/dL (32.0-37.0); Mean Platelet Volume 11.1 fL (9.5-12.2); Monocytes # (A) 0.64 X 10*3/uL (0.20-1.00); Monocytes % (A) 7.6 %; NRBC Per 100 WBC 0 /100 WBCS (0.0-0.0); Neutrophils # (A) 4.98 X 10*3/uL (1.80-7.70); Neutrophils % (A) 59.1 %; Platelet Count 307 X 10*3/uL (140-440); RBC 4.19 X 10*6/uL (4.10-5.20); RDW 13.2 % (11.5-14.5); WBC 8.42 X 10*3/uL (4.50-10.00)
== END | disposition home or self-care (01) ==
LOC: LABPAT 14:10
PROVIDERS: ATTEND Orthopaedic Surgery
DX: Z01.812 Encounter for preprocedural laboratory examination (principal); R22.41 Localized swelling, mass and lump, right lower limb
CPT/HCPCS: 80051; 85025

== ENCOUNTER 2021-05-30 12:10 | Day surgery (SDC) | payer BC ==
[2021-05-27 14:48] VITALS: BMI 30.5
--- NOTE | 2021-05-29 20:19 | HP ---
HISTORY AND PHYSICAL DATE OF SURGERY: 05/30/2021 Cori Stone is a 51-year-old patient seen with a symptomatic soft tissue mass, right knee. We discussed options. She elected to proceed with surgical excision of right knee soft tissue mass. Consent was obtained. PAST MEDICAL HISTORY: Hypertension. PAST SURGICAL HISTORY: Knee arthroscopy, wrist surgery. DAILY MEDICATIONS: Ibuprofen. ALLERGIES: NONE. SOCIAL HISTORY: She denies tobacco use. PHYSICAL EVALUATION OF THE RIGHT KNEE: There is a 2 cm soft tissue mass along the anterior aspect of the knee in the area of the tibial tubercle which is tender to palpation. It is freely mobile. There is no evidence for any erythema or infective process. Range of motion of the knee is zero to 135. She has no effusion present. No tenderness along the medial or lateral joint line areas. Radiographs of the right knee reveal some osteoarthritic changes. IMPRESSION: 1. Symptomatic soft tissue mass, right knee. 2. History of osteoarthritis, right knee. PLAN: Excision of soft tissue mass, right knee. MMODL / IJN: [id number] /
[~2021-05-30 12:10] MED LIST changes: +LIDOCAINE 1% (10MG/ML) FOR IV START INTRADERMA PRN; +MIDAZOLAM 2 MG/2 ML VIAL IV PRN; +fentaNYL (PF) 50 MCG/ML 2 ML AMP IV PRN
[2021-05-30 13:25] VITALS: RESP 16; TEMP 98.5
[2021-05-30] MEDS ORDERED: SCOPOLAMINE 1.5MG/72HR PATCH TRANSDERM ONE (13:43)
[2021-05-30] MEDS ORDERED: LIDOCAINE 1% INJ 10MG/ML (20 ML MDV) ONE (15:12)
[2021-05-30] MEDS ORDERED: PROPOFOL 10 MG/ML 20 ML VIAL IV ONE (15:12)
[2021-05-30] MEDS ORDERED: KETOROLAC 30 MG/ML 1 ML VIAL ONE (15:12)
[2021-05-30] MEDS ORDERED: fentaNYL (PF) 50 MCG/ML 2 ML AMP ONE (15:12)
[2021-05-30] MEDS ORDERED: MIDAZOLAM 2 MG/2 ML VIAL ONE (15:12)
[2021-05-30] MEDS ORDERED: HYDROmorphone (PF) 1 MG/ML ONE (15:12)
[2021-05-30] MEDS ORDERED: BUPIVACAINE (PF) 0.25% 30 ML VIAL SQ ONE ×2 (15:33)
--- NOTE | 2021-05-30 15:48 | P.OP ---
Date of Procedure: 05/30/21 Preoperative Diagnosis: Symptomatic soft tissue mass right knee Postoperative Diagnosis: Symptomatic ganglion cyst anterior aspect right knee Procedure(s) Performed: Excision ganglion cyst measuring approximately 2 x 2 centimeters anterior aspect right knee Anesthesia: FRIEDA local Surgeon: Gonzalo Pate Personal Banker #1: Reilly Barnett Estimated Blood Loss (ml): 2 Pathology: none sent Condition: stable Disposition: PACU Indications for Procedure: 51-year-old patient seen with symptomatic soft tissue mass involving the anterior aspect right knee which had failed conservative treatment measures. We discussed options for treatment. She elected procedure surgical excision. Operative Findings: See description of procedure Description of Procedure: Patient was taken to the operative suite. She received preoperative IV antibiotics. She underwent a general anesthetic by the department of anesthesia. A well-padded tourniquet was placed along the proximal right thigh. The right lower extremity was now prepped and draped in the normal sterile orthopedic fashion. We elevated the extremity and insufflated tourniquet to 300. I now made a 3 cm incision along the anterior aspect of the knee in the area of the soft tissue mass which was approximately overlying the tibial tubercle. I dissected down to the soft tissue mass. Jaxon ACEVEDO assisted by utilizing retractors so as we could gain visualization of the soft tissue mass. It was easily identified and noted to be a ganglion cyst. It measures approximately 2 x 2 centimeters. I now carefully dissected around the ganglion cyst with the assistance of Jaxon ACEVEDO holding retractors. I was able to excise the soft tissue mass without difficulty. I used electrocautery to help with stable hemostasis. The wound was irrigated with saline solution. I explored the wound and noted no other abnormal tissue areas. The subcutaneous soft tissues were repaired with 2-0 Vicryl. The skin was approximated with 3-0 nylon. We infiltrated the area with 10 mL quarter percent plain Marcaine for postoperative pain management. I now applied sterile dressings to the area. The tourniquet was now released with immediate capillary refill the entire extremity noted. The patient was awakened and transferred to recovery in stable condition. Jaxon ACEVEDO assisted with the procedure.
[2021-05-30 17:27] VITALS: BP 118/69; PULSE 78
== END 2021-05-30 17:36 | disposition home or self-care (01) ==
LOC: OR 12:10
PROVIDERS: ATTEND Orthopaedic Surgery
DX: M67.48 Ganglion, other site (principal); I10 Essential (primary) hypertension; Z98.890 Other specified postprocedural states; Z79.1 Long term (current) use of non-steroidal anti-inflammatories (NSAID); M17.11 Unilateral primary osteoarthritis, right knee; F90.9 Attention-deficit hyperactivity disorder, unspecified type; F41.9 Anxiety disorder, unspecified; Z79.899 Other long term (current) drug therapy
CPT/HCPCS: 81025; 84132; 27328; J2250; J1100; J0690; J2405; J2001; J3010; J1885; J1170; J2704

== ENCOUNTER → 2021-06-26 | Outpatient (CLI) | payer BC ==
--- NOTE | 2021-06-27 11:50 | MM ---
Reason for exam: screening (asymptomatic). Last mammogram was performed 1 year and 9 months ago. History: Patient had first child at age 37. Physical Findings: A clinical breast exam by your physician is recommended on an annual basis and results should be correlated with mammographic findings. MG Screening Mammo w CAD Bilateral CC and MLO view(s) were taken. Prior study comparison: September 19, 2019, bilateral MG screening mammo w CAD. September 15, 2017, bilateral MG screening mammo w CAD. The breast tissue is heterogeneously dense. This may lower the sensitivity of mammography. No significant changes when compared with prior studies. ASSESSMENT: Benign, BI-RAD 2 RECOMMENDATION: Routine screening mammogram of both breasts in 1 year.
== END | disposition home or self-care (01) ==
LOC: RADMAMWWP 15:56
PROVIDERS: ATTEND Obstetrics & Gynecology
DX: Z12.31 Encounter for screening mammogram for malignant neoplasm of breast (principal)
CPT/HCPCS: 77067

== ENCOUNTER → 2021-11-23 | Outpatient (CLI) | payer BC ==
[2021-11-23 15:56] LABS: Basophils # (A) 0.04 X 10*3/uL (0.00-0.10); Basophils % (A) 0.5 %; Eosinophils # (A) 0.15 X 10*3/uL (0.04-0.35); HCT 37.7 % (37.2-46.3); HGB 12.4 g/dL (12.0-15.0); Immature Grans, Automated 0.3 %; Lymphocytes # (A) 2.28 X 10*3/uL (0.90-5.00); MCH 30.5 pg (27.0-32.0); MCHC 32.9 g/dL (32.0-37.0); MCV 92.6 fL (80.0-97.0); Mean Platelet Volume 11.3 fL (9.5-12.2); Monocytes # (A) 0.52 X 10*3/uL (0.20-1.00); Monocytes % (A) 7.1 %; NRBC Per 100 WBC 0 /100 WBCS (0.0-0.0); Neutrophils # (A) 4.34 X 10*3/uL (1.80-7.70); Neutrophils % (A) 59.1 %; Platelet Count 293 X 10*3/uL (140-440); RBC 4.07 X 10*6/uL (4.10-5.20); RDW 12.6 % (11.5-14.5); WBC 7.35 X 10*3/uL (4.50-10.00)
[2021-11-23 16:12] LABS: Anion Gap 10.6 mmol/L (10.00-18.00); Carbon Dioxide 24.3 mmol/L (20.0-27.5)
== END | disposition home or self-care (01) ==
LOC: LABPAT 11:28
PROVIDERS: ATTEND Orthopaedic Surgery
DX: Z01.812 Encounter for preprocedural laboratory examination (principal); R22.41 Localized swelling, mass and lump, right lower limb
CPT/HCPCS: 80051; 85025

== ENCOUNTER 2021-12-05 12:22 | Day surgery (SDC) | payer BC ==
[2021-12-02 16:18] VITALS: BMI 28.8
--- NOTE | 2021-12-05 03:34 | HP ---
HISTORY AND PHYSICAL DATE OF SURGERY: 12/05/2021. HISTORY OF PRESENT ILLNESS: Cori Stone is a 51-year-old patient, seen with a symptomatic soft tissue mass, anterior aspect of the right knee. We discussed options. She elected to proceed with excision of the symptomatic soft tissue mass. Consent was obtained. PAST MEDICAL HISTORY: Hypertension. PAST SURGICAL HISTORY: Wrist surgery, knee arthroscopy, excision of soft tissue mass. DAILY MEDICATIONS: 1. Ibuprofen. 2. Adipex. 3. [place]. ALLERGIES: None. SOCIAL HISTORY: Denies tobacco use. PHYSICAL EVALUATION OF THE RIGHT KNEE: There is a 2 x 1 cm soft tissue mass, anterior aspect of the knee, is somewhat tender to palpation. There is no evidence for any infective process. She has full range of motion of her knee. Her ligaments are stable. There is no effusion. Her distal neurovascular exam is intact. IMPRESSION: Right knee symptomatic soft tissue mass. PLAN: Excision of soft tissue mass, right knee. MMODL / IJN: [id number] /
[~2021-12-05 12:22] MED LIST changes: -MIDAZOLAM 2 MG/2 ML VIAL IV PRN; -fentaNYL (PF) 50 MCG/ML 2 ML AMP IV PRN
[2021-12-05] MEDS ORDERED: KETOROLAC 15 MG/ML 1 ML VIAL ONE (13:18)
[2021-12-05] MEDS ORDERED: PROPOFOL 10 MG/ML 20 ML VIAL IV ONE (13:18)
[2021-12-05] MEDS ORDERED: fentaNYL (PF) 50 MCG/ML 2 ML AMP ONE (13:18)
[2021-12-05] MEDS ORDERED: HYDROmorphone (PF) 1 MG/ML ONE (13:18)
[2021-12-05] MEDS ORDERED: LIDOCAINE 2% INJ 20 MG/ML (2 ML VIAL) ONE (13:18)
[2021-12-05] MEDS ORDERED: MIDAZOLAM 2 MG/2 ML VIAL ONE (13:18)
[2021-12-05] MEDS ORDERED: SCOPOLAMINE 1 MG/72 HR PATCH TRANSDERM ONE (13:21)
[2021-12-05] MEDS ORDERED: BUPIVACAIN-EPI 0.25%-1:200,000 30 ML VIAL SQ ONE (13:43)
--- NOTE | 2021-12-05 14:00 | P.OP ---
Date of Procedure: 12/05/21 Preoperative Diagnosis: Soft tissue mass anterior aspect right knee Postoperative Diagnosis: Ganglion cyst anterior aspect right knee Procedure(s) Performed: Excision ganglion cyst measuring 2 x 2 x 2 centimeters right knee Anesthesia: FRIEDA local Surgeon: Gonzalo Pate Lens Cutter #1: Reilly Barnett Estimated Blood Loss (ml): 3 Pathology: none sent Condition: stable Disposition: PACU Indications for Procedure: 51-year-old patient seen with a persistent symptomatic soft tissue mass around the area of the patellar tendon right knee. We discussed surgical excision. She was agreeable. Consent was obtained. Operative Findings: See description of procedure Description of Procedure: Patient was taken to the operative suite. She received preoperative IV antibiotics. She underwent a general anesthetic by the department of anesthesia. A well-padded tourniquet was placed on the proximal right lower extremity. The right lower extremity was prepped and draped in the normal sterile orthopedic fashion. I made a 3 cm incision along the area of the soft tissue mass anterior aspect right knee. I carefully dissected down to the soft tissue mass. It appeared to be a ganglion cyst. I carefully dissected around the soft tissue mass. It was just anterior to the patellar tendon. I carefully dissected off of the patellar tendon. It was removed/excised without difficulty. The patellar tendon appeared intact. The wound was irrigated with saline solution. Was explored with no residual soft tissue masses present. The ganglion cyst itself was excised measured 2 x 2 x 2 cm. When I decompressed it was filled with thick gelatinous fluid consistent with ganglion cyst. The subcu soft tissues were repaired with 2-0 Vicryl. The subcu soft tissues were infiltrated with quarter percent plain Marcaine. The skin was approximated with a strata fix suture augmented with skin glue. Sterile dressings were applied. The tourniquet released with immediate cap refill the extremity noted. I applied a sterile web roll and Sam bandage. The patient was awakened and transferred to recovery stable condition. Jaxon ACEVEDO assisted with this procedure.
[2021-12-05 14:17] VITALS: TEMP 98
[2021-12-05 14:52] VITALS: RESP 16
[2021-12-05 15:33] VITALS: BP 125/74; PULSE 69
== END 2021-12-05 16:22 | disposition home or self-care (01) ==
LOC: OR 12:22
PROVIDERS: ATTEND Orthopaedic Surgery
DX: M67.461 Ganglion, right knee (principal); I10 Essential (primary) hypertension; Z98.890 Other specified postprocedural states; Z79.1 Long term (current) use of non-steroidal anti-inflammatories (NSAID); Z79.891 Long term (current) use of opiate analgesic; Z79.899 Other long term (current) drug therapy; M19.90 Unspecified osteoarthritis, unspecified site; G43.909 Migraine, unspecified, not intractable, without status migrainosus; Z79.3 Long term (current) use of hormonal contraceptives
CPT/HCPCS: 81025; 88305; 27339; J2250; J1100; J0690; J2405; J3010; J1170 ×2; J1885; J2704; J2001

== ENCOUNTER 2023-09-27 23:59 | Emergency (ER) | payer BC ==
[2023-09-28 00:15] VITALS: TEMP 97.9
--- NOTE | 2023-09-28 00:49 | ED ---
Abdominal Pain HPI - General Chief Complaint: Abdominal Pain Stated Complaint: Back pain, nausea Time Seen by Provider: 09/28/23 00:34 Source: patient, RN notes reviewed, old records reviewed Mode of arrival: wheelchair Limitations: no limitations - History of Present Illness Initial Comments: This is a 53-year-old female to ER for evaluation abdominal pain severe abdominal pain left flank pain left flank pain in the left groin left back pain persisting nausea and vomiting no fevers no bowel or bladder issues MD Complaint: abdominal pain, flank pain -: hour(s) Location: diffuse, LUQ, L flank Radiation: L flank Migration to: suprapubic Severity: severe Quality: stabbing Consistency: constant Worsens With: nothing Associated Symptoms: nausea - Related Data Home Medications Medication Instructions Recorded Confirmed Medroxyprogesterone Acetate 150 mg IM Q90D 12/02/21 12/05/21 [Depo-Provera] HYDROcodone/APAP 10-325MG [[place] 1 tab PO Q6HR PRN 12/05/21 12/05/21 10-325] Ibuprofen 800 mg PO Q8H 12/05/21 12/05/21 Previous Rx's Medication Instructions Recorded HYDROcodone/APAP 7.5-325MG [[place] 1 each PO Q6HR PRN #28 tab 12/05/21 7.5] Allergies Allergy/AdvReac Type Severity Reaction Status Date / Time No Known Allergies Allergy Verified 12/05/21 13:01 Review of Systems ROS Statement: Those systems with pertinent positive or pertinent negative responses have been documented in the HPI. ROS Other: All systems not noted in ROS Statement are negative. Past Medical History Past Medical History: Hypertension Additional Past Medical History / Comment(s): herniated disc lower spine,steroid pack Nov 2019 History of Any Multi-Drug Resistant Organisms: None Reported Past Surgical History: Orthopedic Surgery Additional Past Surgical History / Comment(s): knee, wrist Past Anesthesia/Blood Transfusion Reactions: Postoperative Nausea & Vomiting (PONV) Past Psychological History: Anxiety Smoking Status: Never smoker Past Alcohol Use History: Rare Past Drug Use History: None Reported - Past Family History Mother Family Medical History: Hypertension, Pneumonia Father Family Medical History: Cancer Sister(s) Family Medical History: Deep Vein Thrombosis (DVT) General Exam Limitations: no limitations General appearance: alert, in no apparent distress Head exam: Present: atraumatic, normocephalic, normal inspection Eye exam: Present: normal appearance, PERRL, EOMI. Absent: scleral icterus, conjunctival injection, periorbital swelling ENT exam: Present: normal exam, mucous membranes moist Neck exam: Present: normal inspection. Absent: tenderness, meningismus, lymphadenopathy Respiratory exam: Present: normal lung sounds bilaterally. Absent: respiratory distress, wheezes, rales, rhonchi, stridor Cardiovascular Exam: Present: regular rate, normal rhythm, normal heart sounds. Absent: systolic murmur, diastolic murmur, rubs, gallop, clicks GI/Abdominal exam: Present: soft, normal bowel sounds. Absent: distended, tenderness, guarding, rebound, rigid Extremities exam: Present: normal inspection, full ROM, normal capillary refill. Absent: tenderness, pedal edema, joint swelling, calf tenderness Back exam: Present: normal inspection Neurological exam: Present: alert, oriented X3, CN II-XII intact Psychiatric exam: Present: normal affect, normal mood Skin exam: Present: warm, dry, intact, normal color. Absent: rash Course Vital Signs 09/28/23 09/28/23 09/28/23 00:10 03:23 05:13 Temperature 97.9 F Pulse Rate 86 92 90 Respiratory 15 18 18 Rate Blood Pressure 166/83 127/80 137/79 O2 Sat by Pulse 99 98 98 Oximetry - Reevaluation(s) Reevaluation #1: 09/28/23 01:00 Medical records reviewed Reevaluation #2: 09/28/23 01:01 Patient symptoms improved Reevaluation #3: 09/28/23 01:01 Patient informed of results questions answered Reevaluation #4: Was pt. sent in by a medical professional or institution (, PA, DRIVER LICENSE EXAMINER, urgent care, hospital, or fdc...) When possible be specific @ -no Did you speak to anyone other than the patient for history (EMS, parent, family, police, friend...)? What history was obtained from this source @ -no Did you review nursing and triage notes (agree or disagree)? Why? @ -agree Are old charts reviewed (outside hosp., previous admission, EMS record, old EKG, old radiological studies, urgent care reports/EKG's, fdc records)? Report findings @ -yes Differential Diagnosis (chest pain, altered mental status, abdominal pain women, abdominal pain men, vaginal bleeding, weakness, fever, dyspnea, syncope, headache, dizziness, GI bleed, back pain, seizure, CVA, palpatations, mental health, musculoskeletal)? @ -prior EKG interpreted by me (3pts min.). @ -no X-rays interpreted by me (1pt min.). @ -no CT interpreted by me (1pt min.). @ -yes negative for acute disease U/S interpreted by me (1pt. min.). @ -no What testing was considered but not performed or refused? (CT, X-rays, U/S, l abs)? Why? @ -none What meds were considered but not given or refused? Why? @ -none Did you discuss the management of the patient with other professionals (professionals i.e. , PA, DRIVER LICENSE EXAMINER, lab, RT, psych nurse, foster care social worker, estimator and drafter supervisor, teacher, sheriff's officer, renal case manager)? Give summary @ -no Was smoking cessation discussed for >3mins.? @ -no Was critical care preformed (if so, how long)? @ -no Were there social determinants of health that impacted care today? How? (Homelessness, low income, unemployed, alcoholism, drug addiction, transportation, low edu. Level, literacy, decrease access to med. care, care home, rehab)? @ -none Was there de-escalation of care discussed even if they declined (Discuss DNR or withdrawal of care, Hospice)? DNR status @ -no What co-morbidities impacted this encounter? (DM, HTN, Smoking, COPD, CAD, Cancer, CVA, ARF, Chemo, Hep., AIDS, mental health diagnosis, sleep apnea, morbid obesity)? @ -none Was patient admitted / discharged? Hospital course, mention meds given and route, prescriptions, significant lab abnormalities, going to OR and other pertinent info. @ - 53 female to the ER for evaluation with left-sided kidney stone. Patient adequate pain control can be discharged home Discharge Undiagnosed new problem with uncertain prognosis? @ -no Drug Therapy requiring intensive monitoring for toxicity (Heparin, Nitro, Insulin, Cardizem)? @ -no Were any procedures done? @ -no Diagnosis/symptom? @ -Kidney stone Acute, or Chronic, or Acute on Chronic? @ -Acute Uncomplicated (without systemic symptoms) or Complicated (systemic symptoms)? @ -Complicated Side effects of treatment? @ -no Exacerbation, Progression, or Severe Exacerbation? @ -exacerbation Poses a threat to life or bodily function? How? (Chest pain, [place], [place], pneumonia, PE, COPD, DKA, ARF, appy, cholecystitis, CVA, Diverticulitis, Homicidal, Suicidal, threat to staff... and all critical care pts) @ -no Reevaluation #5: Differential Abdominal Pain woMen: Appendicitis, cholecystitis, diverticulosis, ischemic bowel, pancreatitis, hepatitis, UTI, gastroenteritis, AAA, incarcerated hernia, bowel obstruction, constipation, inflammatory bowel, hepatitis, peptic ulcer disease, splenic infarction, perforated viscus, testicular torsion, this is not meant to be an all-inclusive list Medical Decision Making - Medical Decision Making 53 female to the ER for evaluation with left-sided kidney stone. Patient adequate pain control can be discharged home - Lab Data Result diagrams: 09/28/23 01:18 09/28/23 01:18 Lab Results 09/28/23 09/28/23 09/28/23 Range/Units 01:18 01:18 01:18 WBC 13.1 H (3.8-10.6) k/uL RBC 4.59 (3.80-5.40) m/uL Hgb 14.4 (11.4-16.0) gm/dL Hct 41.2 (34.0-46.0) % MCV 89.8 (80.0-100.0) fL MCH 31.4 (25.0-35.0) pg MCHC 35.0 (31.0-37.0) g/dL RDW 12.8 (11.5-15.5) % Plt Count 321 (150-450) k/uL MPV 7.8 Neutrophils % 85 % Lymphocytes % 9 % Monocytes % 4 % Eosinophils % 1 % Basophils % 0 % Neutrophils # 11.1 H (1.3-7.7) k/uL Lymphocytes # 1.2 (1.0-4.8) k/uL Monocytes # 0.5 (0-1.0) k/uL Eosinophils # 0.1 (0-0.7) k/uL Basophils # 0.0 (0-0.2) k/uL Sodium 139 (137-145) mmol/L Potassium 2.6 L* (3.5-5.1) mmol/L Chloride 105 (98-107) mmol/L Carbon Dioxide 23 (22-30) mmol/L Anion Gap 11 mmol/L BUN 22 H (7-17) mg/dL Creatinine 0.79 (0.52-1.04) mg/dL Est GFR (CKD-EPI)AfAm >90 (>60 ml/min/1.73 sqM) Est GFR (CKD-EPI)NonAf 87 (>60 ml/min/1.73 sqM) Glucose 204 H (74-99) mg/dL Plasma Lactic Acid [place] 1.4 (0.7-2.0) mmol/L Calcium 10.3 H (8.4-10.2) mg/dL Magnesium (1.6-2.3) mg/dL Total Bilirubin 0.6 (0.2-1.3) mg/dL AST 28 (14-36) U/L ALT 23 (4-34) U/L Alkaline Phosphatase 65 (38-126) U/L Total Protein 7.2 (6.3-8.2) g/dL Albumin 4.7 (3.5-5.0) g/dL Amylase 52 (30-110) U/L Lipase 600 H (23-300) U/L Urine Color Urine Appearance (Clear) Urine pH (5.0-8.0) Ur Specific [place] (1.001-1.035) Urine Protein (Negative) Urine Glucose (UA) (Negative) Urine Ketones (Negative) Urine Blood (Negative) Urine Nitrite (Negative) Urine Bilirubin (Negative) Urine Urobilinogen (<2.0) mg/dL Ur Leukocyte Esterase (Negative) Urine RBC (0-5) /hpf Urine WBC (0-5) /hpf Ur Squamous Epith Cells (0-4) /hpf Urine Mucus (None) /hpf 09/28/23 09/28/23 Range/Units 01:18 01:20 WBC (3.8-10.6) k/uL RBC (3.80-5.40) m/uL Hgb (11.4-16.0) gm/dL Hct (34.0-46.0) % MCV (80.0-100.0) fL MCH (25.0-35.0) pg MCHC (31.0-37.0) g/dL RDW (11.5-15.5) % Plt Count (150-450) k/uL MPV Neutrophils % % Lymphocytes % % Monocytes % % Eosinophils % % Basophils % % Neutrophils # (1.3-7.7) k/uL Lymphocytes # (1.0-4.8) k/uL Monocytes # (0-1.0) k/uL Eosinophils # (0-0.7) k/uL Basophils # (0-0.2) k/uL Sodium (137-145) mmol/L Potassium (3.5-5.1) mmol/L Chloride (98-107) mmol/L Carbon Dioxide (22-30) mmol/L Anion Gap mmol/L BUN (7-17) mg/dL Creatinine (0.52-1.04) mg/dL Est GFR (CKD-EPI)AfAm (>60 ml/min/1.73 sqM) Est GFR (CKD-EPI)NonAf (>60 ml/min/1.73 sqM) Glucose (74-99) mg/dL Plasma Lactic Acid [place] (0.7-2.0) mmol/L Calcium (8.4-10.2) mg/dL Magnesium 2.0 (1.6-2.3) mg/dL Total Bilirubin (0.2-1.3) mg/dL AST (14-36) U/L ALT (4-34) U/L Alkaline Phosphatase (38-126) U/L Total Protein (6.3-8.2) g/dL Albumin (3.5-5.0) g/dL Amylase (30-110) U/L Lipase (23-300) U/L Urine Color Colorless Urine Appearance Clear (Clear) Urine pH 7.5 (5.0-8.0) Ur Specific [place] 1.012 (1.001-1.035) Urine Protein Negative (Negative) Urine Glucose (UA) Negative (Negative) Urine Ketones Negative (Negative) Urine Blood Moderate H (Negative) Urine Nitrite Negative (Negative) Urine Bilirubin Negative (Negative) Urine Urobilinogen <2.0 (<2.0) mg/dL Ur Leukocyte Esterase Negative (Negative) Urine RBC 149 H (0-5) /hpf Urine WBC 3 (0-5) /hpf Ur Squamous Epith Cells <1 (0-4) /hpf Urine Mucus Rare H (None) /hpf Disposition Clinical Impression: Abdominal pain, Kidney stone on left side Disposition: HOME SELF-CARE Condition: Fair Instructions (If sedation given, give patient instructions): Kidney Stones (ED) Is patient prescribed a controlled substance at d/c from ED?: No Referrals: Ramon Burgess MD [Primary Care Provider] - 1-2 days Edvin Lund MD [STAFF PHYSICIAN] - 1-2 days
[2023-09-28] MEDS: ONDANSETRON 4 MG/2 ML VIAL IVP STA (01:13)
[2023-09-28] MEDS: KETOROLAC 15 MG/ML 1 ML VIAL IVP STA (01:13)
[2023-09-28] MEDS: HYDROmorphone 0.5 MG/0.5 ML SYRINGE IVP STA ×2 (01:13→04:52)
[2023-09-28] MEDS: SODIUM CHLORIDE 0.9% 1,000 ML IV STA ×2 (01:14→03:16)
[2023-09-28] MEDS: SODIUM CHLORIDE 0.9% 500 ML 500 ML IV STA (01:14)
[2023-09-28 01:36] LABS: Basophils % (A) 0 %; Eosinophils # (A) 0.1 k/uL (0-0.7); Eosinophils % (A) 1 %; HCT 41.2 % (34.0-46.0); HGB 14.4 gm/dL (11.4-16.0); Lymphocytes # (A) 1.2 k/uL (1.0-4.8); Lymphocytes % (A) 9 %; MCH 31.4 pg (25.0-35.0); MCV 89.8 fL (80.0-100.0); Mean Platelet Volume 7.8; Monocytes # (A) 0.5 k/uL (0-1.0); Monocytes % (A) 4 %; Neutrophils # (A) 11.1 k/uL (1.3-7.7); Neutrophils % (A) 85 %; Platelet Count 321 k/uL (150-450); RBC 4.59 m/uL (3.80-5.40); RDW 12.8 % (11.5-15.5); WBC 13.1 k/uL (3.8-10.6)
[2023-09-28 01:52] LABS: Appearance,Urine Clear (Clear); Bilirubin,Urine Negative (Negative); Blood,Urine Moderate (Negative); Color,Urine Colorless; Glucose,Urine (UA) Negative (Negative); Ketones,Urine Negative (Negative); Leukocyte Esterase,Urine Negative (Negative); Mucus,Urine Rare /hpf; Nitrite,Urine Negative (Negative); PH, Urine 7.5 (5.0-8.0); Protein,Urine Negative (Negative); RBC,Urine 149 /hpf (0-5); Specific Gravity,Urine 1.012 (1.001-1.035); Squamous Epithelial Cell,Urine <1 /hpf (0-4); Urobilinogen,Urine <2.0 mg/dL (<2.0); WBC,Urine 3 /hpf (0-5)
[2023-09-28 02:00] LABS: ALT 23 U/L (4-34); AST 28 U/L (14-36); African American GFR (CKD) >90 (>60 ml/min/1.73 sqM); Albumin 4.7 g/dL (3.5-5.0); Alkaline Phosphatase 65 U/L (38-126); Amylase 52 U/L (30-110); Anion Gap 11 mmol/L; Blood Urea Nitrogen 22 mg/dL (7-17); Calcium 10.3 mg/dL (8.4-10.2); Carbon Dioxide 23 mmol/L (22-30); Chloride 105 mmol/L (98-107); Glucose 204 mg/dL (74-99); Lipase 600 U/L (23-300); Non-African American GFR(CKD) 87 (>60 ml/min/1.73 sqM); Sodium 139 mmol/L (137-145); Total Bilirubin 0.6 mg/dL (0.2-1.3); Total Protein 7.2 g/dL (6.3-8.2)
[2023-09-28 02:49] LABS: Potassium 2.6 mmol/L (3.5-5.1)
--- NOTE | 2023-09-28 03:03 | CT ---
EXAM: CT Abdomen and Pelvis Without Intravenous Contrast CLINICAL HISTORY: CT Reason: abdominal pain TECHNIQUE: Axial computed tomography images of the abdomen and pelvis without intravenous contrast. CTDI is 10 mGy and DLP is 553.8 mGy-cm. This CT exam was performed using one or more of the following dose reduction techniques: automated exposure control, adjustment of the mA and/or kV according to patient size, and/or use of iterative reconstruction technique. COMPARISON: No relevant prior studies available. FINDINGS: Lung bases: Unremarkable. No mass. No consolidation. ABDOMEN: Liver: Unremarkable. Gallbladder and bile ducts: Unremarkable. No calcified stones. No ductal dilation. Pancreas: Unremarkable. No ductal dilation. Spleen: Unremarkable. No splenomegaly. Adrenals: Unremarkable. No mass. Kidneys and ureters: Mild left hydronephrosis and proximal hydroureter due to an irregular calculus measuring 8 mm in the proximal left ureter located approximately 17 cm from ureterovesicular junction. Stomach and bowel: Unremarkable. No obstruction. No mucosal thickening. PELVIS: Appendix: The appendix is normal. Bowel loops are nondilated. No acute inflammatory changes are seen involving the bowel. Bladder: Unremarkable. No stones. Reproductive: Unremarkable as visualized. ABDOMEN and PELVIS: Intraperitoneal space: Unremarkable. No free air. No significant fluid collection. Bones/joints: Mild degenerative changes involving the spine. No acute fracture or subluxation. Soft tissues: Fat-containing 1.2 cm umbilical hernia without signs of acute inflammation. Vasculature: The abdominal aorta is mildly calcified but nondilated. Lymph nodes: Unremarkable. No enlarged lymph nodes. IMPRESSION: 1. Mild left hydronephrosis and proximal hydroureter due to an irregular calculus measuring 8 mm in the proximal left ureter located approximately 17 cm from ureterovesicular junction. 2. The appendix is normal. Bowel loops are nondilated. No acute inflammatory changes are seen involving the bowel.
[2023-09-28] MEDS: POTASSIUM BICARBONATE/CIT AC 20 MEQ TABLET.EFF PO ONE ×2 (03:14→03:15)
[2023-09-28] MEDS: MAGNESIUM OXIDE 400 MG TAB PO STA ×2 (03:15)
[2023-09-28 03:24] VITALS: RESP 18
[2023-09-28] MEDS: TAMSULOSIN 0.4 MG CAP.ER.24H PO STA (04:52)
[2023-09-28] MEDS: ACET/COD 300 MG/30 MG STARTER PACK 6 TAB BTL PO STA (04:53)
[2023-09-28] MEDS: ONDANSETRON 4 MG ODT STARTER PACK 2 TAB BTL PO STA (04:53)
[2023-09-28] MEDS: traMADol 50 MG STARTER PACK 3 TAB BTL PO STA (04:53)
[2023-09-28] MEDS: IBUPROFEN 600 MG STARTER PACK 4 TAB BTL PO STA (04:53)
[2023-09-28 05:14] VITALS: BP 137/79; PULSE 90
== END 2023-09-28 05:14 | disposition home or self-care (01) ==
LOC: EC 23:59
DX: N13.2 Hydronephrosis with renal and ureteral calculous obstruction (principal)
CPT/HCPCS: 36415; 80053; 82150; 83605; 83690; 83735; 85025; 81001; 74176; 99284; 96374; 96375 ×2; 96376; 96361 ×2; J2405; J1885; S0119; J1170

== ENCOUNTER 2023-10-05 09:53 | Day surgery (SDC) | payer BC ==
[2023-10-01 13:36] VITALS: BMI 30.6
--- NOTE | 2023-10-02 12:28 | P.HPIHPCON ---
History of Present Illness H&P Date: 10/02/23 Chief Complaint: Left ureteral stone This is a 53-year-old female with history of an 8 mm left-sided proximal stone, she is having pain secondary to her stone, option of medical expulsive therapy versus ureteroscopy with holmium laser versus ESWL was discussed in detail, she would like to proceed with ureteroscopy with holmium laser, aware the risk which includes but not limited to bleeding, infection, injury to the ureter Consent for Procedure: I have explained the operation/procedure to the patient, including the risks, benefits, side effects, alternative therapies (including not receiving the proposed treatment or service), the likelihood of the patient achieving his/her goals, and potential recuperation problems for the procedure/sedation/analgesia, as well as any blood products, if indicated. I also explained to the patient the risks, benefits and side effects of the alternatives, as well as the risks related to not receiving the proposed procedure, care, treatment, or services. Past Medical History Past Medical History: GERD/Reflux, Hypertension, Osteoarthritis (OA) Additional Past Medical History / Comment(s): herniated disc lower spine, Ongoing hx of low Potassium. Kidney stone. Hx gestational diabtetes. History of Any Multi-Drug Resistant Organisms: None Reported Past Surgical History: Orthopedic Surgery, Tonsillectomy Additional Past Surgical History / Comment(s): bi lat knee arthroscopic, ganglion cyst rt knee x2 removal. lt wrist ganglion cyst removal. Past Anesthesia/Blood Transfusion Reactions: Postoperative Nausea & Vomiting (PONV) Smoking Status: Never smoker - Past Family History Mother Family Medical History: Hypertension, Pneumonia Father Family Medical History: Cancer Additional Family Medical History / Comment(s): Brain cancer. Sister(s) Family Medical History: Deep Vein Thrombosis (DVT) Medications and Allergies Home Medications Medication Instructions Recorded Confirmed Type Medroxyprogesterone Acetate 150 mg IM Q90D 12/02/21 10/01/23 History [Depo-Provera] HYDROcodone/APAP 10-325MG [[place] 1 tab PO TID PRN 12/05/21 10/01/23 History 10-325] Ibuprofen 800 mg PO Q8H 12/05/21 10/01/23 History Betty D(Uknown Dose) 1 dose PO QAM PRN 10/01/23 10/01/23 History Cranberry Supp(Unknown Dose) 1 dose PO QAM 10/01/23 10/01/23 History Indapamide [Lozol] 2.5 mg PO QAM 10/01/23 10/01/23 History Potachloride(Unknown Dose) 1 dose PO QAM 10/01/23 10/01/23 History Allergies Allergy/AdvReac Type Severity Reaction Status Date / Time No Known Allergies Allergy Verified 10/01/23 13:17 Surgical - Exam - General no distress, moderate pain - Eyes normal ocular movement, no pale - ENT normal nares, normal mucosa - Respiratory normal expansion, normal respiratory effort Assessment and Plan Assessment: OR for left-sided ureteroscopy, holmium laser lithotripsy, stone basketing and stent insertion
[~2023-10-05 09:53] MED LIST changes: -DEXAMETHASONE SOD PHOSPHATE 4 MG/ML 1 ML VIAL IV ONE; -LACTATED RINGERS 1,000 ML IV SCH; -LIDOCAINE 1% (10MG/ML) FOR IV START INTRADERMA PRN; -ONDANSETRON 4 MG/2 ML VIAL IVP ONE
--- NOTE | 2023-10-05 10:18 | XR ---
EXAMINATION TYPE: XR KUB DATE OF EXAM: 10/05/2023 10:12 AM CLINICAL INDICATION:Female, 53 years old with history of Cysto/Lithotripsy; [facility] COMPARISON: None. TECHNIQUE: One radiographic view of the abdomen was obtained. FINDINGS: There is a moderate stool burden, otherwise, the bowel gas pattern is nonspecific without d ilated loops of small or large bowel. . Fecal material and gas are demonstrated throughout the colon and rectum. There is no evidence for organomegaly or pneumoperitoneum. The osseous structures are intact. Pelvi c phleboliths are present. IMPRESSION: No renal calculus definitively visualized.
[2023-10-05] MEDS: IV FLUID CONTINUATION 1,000 ML IV ONE (10:28)
[2023-10-05] MEDS: ONDANSETRON 4 MG/2 ML VIAL IVP ONE (11:02)
[2023-10-05] MEDS: LACTATED RINGERS 1,000 ML IV SCH (11:02)
[2023-10-05 11:03] LABS: HCG,Qualitative Serum Not Detected
[2023-10-05] MEDS: DEXAMETHASONE SOD PHOSPHATE 4 MG/ML 1 ML VIAL IV ONE (11:03)
[2023-10-05] MEDS ORDERED: fentaNYL (PF) 50 MCG/ML 2 ML AMP ONE (11:44)
[2023-10-05] MEDS ORDERED: KETOROLAC 30 MG/ML 1 ML VIAL ONE (11:44)
[2023-10-05] MEDS ORDERED: MIDAZOLAM 2 MG/2 ML VIAL ONE (11:44)
[2023-10-05] MEDS ORDERED: PROPOFOL 10 MG/ML 20 ML VIAL IV ONE (11:44)
[2023-10-05] MEDS ORDERED: LIDOCAINE 1% INJ 10MG/ML (20 ML MDV) ONE (11:44)
[2023-10-05 11:45] LABS: Potassium 3.5 mmol/L (3.5-5.1)
--- NOTE | 2023-10-05 12:34 | P.OP ---
Date of Procedure: 10/05/23 Preoperative Diagnosis: Left ureteral stone Postoperative Diagnosis: Same Procedure(s) Performed: Cystoscopy, left ureteroscopy, holmium laser lithotripsy, stone basketing and stent insertion Implants: 6 [place] by 24 cm stent in the left ureter Anesthesia: FRIEDA Surgeon: Jordan Trinh Estimated Blood Loss (ml): 5 Pathology: other (left ureteral stone) Condition: stable Disposition: PACU Indications for Procedure: This is a 53-year-old female with history of an 8 mm left-sided proximal stone, she is having pain secondary to her stone, option of medical expulsive therapy versus ureteroscopy with holmium laser versus ESWL was discussed in detail, she would like to proceed with ureteroscopy with holmium laser, aware the risk which includes but not limited to bleeding, infection, injury to the ureter Operative Findings: Left-sided distal ureteral stone Description of Procedure: Patient brought the operating room, general anesthesia was induced. She was prepped and draped in sterile fashion placed in dorsolithotomy position. Cystoscopy through the 21 [place] sheath was inserted per urethra cystoscopy was performed showed no abnormality within the bladder attention was then carried to the left ureteral orifice, semirigid ureteroscope was inserted per urethra and advanced up the left ureteral orifice, at this point a stone was encountered in the distal ureter. Using the holmium laser the stone was fragmented, sizable stone fragments were removed using a stone basket. At this time the ureteroscope was advanced all the way up to the UPJ which showed no additional stones, pullback ureteroscopy was performed showed no injury to the ureter or any ureteral stone, there was some edema at the site of the stone, as ureteroscope was withdrawn a sensor wire was advanced through. Next a ureteral stent was passed over the wire, the proximal curl was visualized on fluoroscopy and the distal curl was visualized using the cystoscope. The bladder was emptied at the end of the case. Patient tolerated procedure well was taken to recovery in stable condition
[2023-10-05 12:41] VITALS: TEMP 97.7
[2023-10-05 14:12] VITALS: BP 141/74; PULSE 70; RESP 20
--- NOTE | 2023-10-05 14:13 | FL ---
EXAMINATION TYPE: FL guidance operating room Intraoperative/procedural fluoroscopic services were pro vided. Total fluoroscopy time is 6.5 seconds with a total of 5 submitted images to PACS. Please see t he operative/procedural note for further details. DAP: 0.5604 Gycm2
== END 2023-10-05 14:07 | disposition home or self-care (01) ==
LOC: OR 09:53
PROVIDERS: ATTEND Urology
DX: N20.1 Calculus of ureter (principal); K21.9 Gastro-esophageal reflux disease without esophagitis; I10 Essential (primary) hypertension; M19.90 Unspecified osteoarthritis, unspecified site; E87.6 Hypokalemia; F41.9 Anxiety disorder, unspecified; Z90.89 Acquired absence of other organs; Z82.49 Family history of ischemic heart disease and other diseases of the circulatory system; Z80.8 Family history of malignant neoplasm of other organs or systems; Z86.718 Personal history of other venous thrombosis and embolism; Z79.3 Long term (current) use of hormonal contraceptives; Z79.899 Other long term (current) drug therapy
CPT/HCPCS: 84132; 84703; 82365; 74018; 52356; J1100; J0690; J2405

== ENCOUNTER 2024-03-24 12:25 | Emergency (ER) | payer BC ==
--- NOTE | 2024-03-24 12:57 | ED ---
General Adult HPI - General Chief complaint: Urogenital Stated complaint: poss kidney stone Time Seen by Provider: 03/24/24 12:42 Source: patient, RN notes reviewed Mode of arrival: ambulatory Limitations: no limitations - History of Present Illness Initial comments: This is a 54-year-old female who with a history of nephrolithiasis presenting to the emergency department for chief complaint of left flank pain with ration to left abdomen that started at 1030 this morning. States that she has been having urinary urgency with decreased output states that she has been unable to urinate and is concerned that she is retaining urine. She denies hematuria, dysuria, fevers, chills. Endorses nausea with no vomiting. Patient has a history of ureteral stent that was placed due to enlarged stone. Follows with Dr. Frye - Related Data Home Medications Medication Instructions Recorded Confirmed Medroxyprogesterone Acetate 150 mg IM Q90D 12/02/21 10/05/23 [Depo-Provera] HYDROcodone/APAP 10-325MG [[place] 1 tab PO TID PRN 12/05/21 10/05/23 10-325] Ibuprofen 800 mg PO Q8H 12/05/21 10/05/23 Betty D(Uknown Dose) 1 dose PO QAM PRN 10/01/23 10/05/23 Cranberry Supp(Unknown Dose) 1 dose PO QAM 10/01/23 10/05/23 Indapamide [Lozol] 2.5 mg PO QAM 10/01/23 10/05/23 Potachloride(Unknown Dose) 1 dose PO QAM 10/01/23 10/05/23 Previous Rx's Medication Instructions Recorded Cephalexin [Keflex] 500 mg PO Q8HR #15 cap 10/05/23 Ketorolac [Toradol] 10 mg PO Q6HR PRN #15 tab 10/05/23 Ketorolac [Toradol] 10 mg PO Q8HR #15 tab 03/24/24 Tamsulosin [Flomax] 0.4 mg PO DAILY #7 cap 03/24/24 Allergies Allergy/AdvReac Type Severity Reaction Status Date / Time No Known Allergies Allergy Verified 03/24/24 12:37 Review of Systems ROS Statement: Those systems with pertinent positive or pertinent negative responses have been documented in the HPI. ROS Other: All systems not noted in ROS Statement are negative. Past Medical History Past Medical History: GERD/Reflux, Hypertension, Osteoarthritis (OA) Additional Past Medical History / Comment(s): herniated disc lower spine, Ongoing hx of low Potassium. Kidney stone. Hx gestational diabtetes. History of Any Multi-Drug Resistant Organisms: None Reported Past Surgical History: Orthopedic Surgery, Tonsillectomy Additional Past Surgical History / Comment(s): bi lat knee arthroscopic, ganglion cyst rt knee x2 removal. lt wrist ganglion cyst removal. Past Anesthesia/Blood Transfusion Reactions: Postoperative Nausea & Vomiting (PONV) Past Psychological History: Anxiety Smoking Status: Never smoker Past Alcohol Use History: None Reported Past Drug Use History: None Reported - Past Family History Mother Family Medical History: Hypertension, Pneumonia Father Family Medical History: Cancer Additional Family Medical History / Comment(s): Brain cancer. Sister(s) Family Medical History: Deep Vein Thrombosis (DVT) General Exam Limitations: no limitations General appearance: alert, in no apparent distress Respiratory exam: Present: normal lung sounds bilaterally. Absent: respiratory distress, wheezes, rales, rhonchi, stridor Cardiovascular Exam: Present: regular rate, normal rhythm, normal heart sounds. Absent: systolic murmur, diastolic murmur, rubs, gallop, clicks GI/Abdominal exam: Present: soft, normal bowel sounds. Absent: distended, ten derness, guarding, rebound, rigid Extremities exam: Present: normal inspection, full ROM, normal capillary refill. Absent: tenderness, pedal edema, joint swelling, calf tenderness Back exam: Present: normal inspection, tenderness, CVA tenderness (L) Skin exam: Present: warm, dry, intact, normal color. Absent: rash Course Vital Signs 03/24/24 12:33 Temperature 98.2 F Pulse Rate 82 Respiratory 20 Rate Blood Pressure 167/88 O2 Sat by Pulse 98 Oximetry Medical Decision Making - Medical Decision Making Was pt. sent in by a medical professional or institution (, PA, DIRECTOR PRIVATE, urgent care, hospital, or correction...) When possible be specific @ -No Did you speak to anyone other than the patient for history (EMS, parent, family, police, friend...)? What history was obtained from this source @ -No Did you review nursing and triage notes (agree or disagree)? Why? @ -I reviewed and agree with nursing and triage notes Were old charts reviewed (outside hosp., previous admission, EMS record, old EKG, old radiological studies, urgent care reports/EKG's, correction records)? Report findings @ -No old charts were reviewed Differential Diagnosis (chest pain, altered mental status, abdominal pain women, abdominal pain men, vaginal bleeding, weakness, fever, dyspnea, syncope, headache, dizziness, GI bleed, back pain, seizure, CVA, palpatations, mental health, musculoskeletal)? @ -Differential Abdominal Pain Women: Appendicitis, Cholecystitis, diverticulosis, ischemic bowel, pancreatitis, hepatitis, UTI, gastroenteritis, AAA, incarcerated hernia, bowel obstruction, constipation, inflammatory bowel, hepatitis, peptic ulcer disease, splenic infarction, perforated viscus, vulvitis, ovarian torsion, PID, kidney stone, placenta abruption, this is not meant to be an all-inclusive list EKG interpreted by me (3pts min.). @ -none X-rays interpreted by me (1pt min.). @ -None done CT interpreted by me (1pt min.). @ - CT of the abdomen pelvis without contrast remarkable for a marked left hydronephrosis and hydroureter secondary to 2 adjacent 6 to 7 mm calcifications in the distal left ureter proximal to the left UVJ U/S interpreted by me (1pt. min.). @ -None done What testing was considered but not performed or refused? (CT, X-rays, U/S, labs)? Why? @ -None What meds were considered but not given or refused? Why? @ -None Did you discuss the management of the patient with other professionals (professionals i.e. , PA, DIRECTOR PRIVATE, lab, RT, psych nurse, social service agency director, gate supervisor, teacher, campus police officer, rn case mgr)? Give summary @ -No Was smoking cessation discussed for >3mins.? @ -No Was critical care preformed (if so, how long)? @ -No Were there social determinants of health that impacted care today? How? (Homelessness, low income, unemployed, alcoholism, drug addiction, transportation, low edu. Level, literacy, decrease access to med. care, usp, rehab)? @ -No Was there de-escalation of care discussed even if they declined (Discuss DNR or withdrawal of care, Hospice)? DNR status @ -No What co-morbidities impacted this encounter? (DM, HTN, Smoking, COPD, CAD, C ancer, CVA, ARF, Chemo, Hep., AIDS, mental health diagnosis, sleep apnea, morbid obesity)? @ -None Was patient admitted / discharged? Hospital course, mention meds given and route, prescriptions, significant lab abnormalities, going to OR and other pertinent info. @ -Discharge. 54-year-old female presenting with left flank pain with radiation into the left abdomen. Pain is reproducible on palpation of the CVA left-sided tenderness. Vitals are stable. She is provided with emetics and pain medication pending laboratory results and CT imaging. Labs remarkable for leukocytosis of 14.9 and left shift neutrophil 11.8. Patient noted to be hypokalemic with a potassium of 2.9 and potassium supplementation was ordered. Urinalysis remarkable for blood including.@182 red blood cells and moderate blood with no signs of infection. CT remarkable for 2 adjacent 67 mm calcifications proximal to the left UVJ with marked left hydronephrosis and hydroureter. Patient has followed outpatient with urology recommend that she follow-up outpatient for further evaluation. She is provided with prescription for Toradol and Flomax and strict return parameters have been discussed. patient's case discussed with my attending, Undiagnosed new problem with uncertain prognosis? @ -No Drug Therapy requiring intensive monitoring for toxicity (Heparin, Nitro, Insulin, Cardizem)? @ -No Were any procedures done? @ -No Diagnosis/symptom? @ -Ureterolithiasis Acute, or Chronic, or Acute on Chronic? @ -Acute Uncomplicated (without systemic symptoms) or Complicated (systemic symptoms)? @ -Uncomplicated Side effects of treatment? @ -No Exacerbation, Progression, or Severe Exacerbation? @ -No Poses a threat to life or bodily function? How? (Chest pain, [place], [place], pneumonia, PE, COPD, DKA, ARF, appy, cholecystitis, CVA, Diverticulitis, Homicidal, Suicidal, threat to staff... and all critical care pts) @ -No - Lab Data Result diagrams: 03/24/24 13:36 03/24/24 13:36 Lab Results 03/24/24 03/24/24 03/24/24 Range/Units 13:36 13:36 13:36 WBC 14.9 H (3.8-10.6) k/uL RBC 4.70 (3.80-5.40) m/uL Hgb 14.4 (11.4-16.0) gm/dL Hct 42.0 (34.0-46.0) % MCV 89.3 (80.0-100.0) fL MCH 30.6 (25.0-35.0) pg MCHC 34.2 (31.0-37.0) g/dL RDW 13.4 (11.5-15.5) % Plt Count 339 (150-450) k/uL MPV 7.7 Neutrophils % 79 % Lymphocytes % 14 % Monocytes % 4 % Eosinophils % 1 % Basophils % 0 % Neutrophils # 11.8 H (1.3-7.7) k/uL Lymphocytes # 2.1 (1.0-4.8) k/uL Monocytes # 0.6 (0-1.0) k/uL Eosinophils # 0.2 (0-0.7) k/uL Basophils # 0.0 (0-0.2) k/uL Sodium 139 (137-145) mmol/L Potassium 2.9 L (3.5-5.1) mmol/L Chloride 103 (98-107) mmol/L Carbon Dioxide 27 (22-30) mmol/L Anion Gap 9 mmol/L BUN 16 (7-17) mg/dL Creatinine 0.91 (0.52-1.04) mg/dL Est GFR (CKD-EPI)AfAm 83 (>60 ml/min/1.73 sqM) Est GFR (CKD-EPI)NonAf 72 (>60 ml/min/1.73 sqM) Glucose 131 H (74-99) mg/dL Calcium 10.2 (8.4-10.2) mg/dL Total Bilirubin 0.7 (0.2-1.3) mg/dL AST 26 (14-36) U/L ALT 25 (4-34) U/L Alkaline Phosphatase 69 (38-126) U/L Total Protein 7.0 (6.3-8.2) g/dL Albumin 4.3 (3.5-5.0) g/dL Urine Color Light Yellow Urine Appearance Cloudy H (Clear) Urine pH 7.0 (5.0-8.0) Ur Specific [place] 1.019 (1.001-1.035) Urine Protein Trace H (Negative) Urine Glucose (UA) Negative (Negative) Urine Ketones 1+ H (Negative) Urine Blood Moderate H (Negative) Urine Nitrite Negative (Negative) Urine Bilirubin Negative (Negative) Urine Urobilinogen <2.0 (<2.0) mg/dL Ur Leukocyte Esterase Negative (Negative) Urine RBC >182 H (0-5) /hpf Urine WBC 3 (0-5) /hpf Ur Squamous Epith Cells 5 H (0-4) /hpf Urine Mucus Rare H (None) /hpf Disposition Clinical Impression: Ureterolithiasis Disposition: HOME SELF-CARE Condition: Good Instructions (If sedation given, give patient instructions): Kidney Stones (ED) Additional Instructions: Please return to the Emergency Department if symptoms worsen or any other concerns. Recommend follow-up with urology for further evaluation. Prescriptions: Tamsulosin [Flomax] 0.4 mg PO DAILY #7 cap Ketorolac [Toradol] 10 mg PO Q8HR #15 tab Is patient prescribed a controlled substance at d/c from ED?: No Referrals: Ramon Burgess MD [Primary Care Provider] - 1-2 days Time of Disposition: 15:19
[2024-03-24] MEDS: MORPHINE SULFATE 4 MG/ML SYRINGE IVP STA (13:42)
[2024-03-24] MEDS: ONDANSETRON 4 MG/2 ML VIAL IVP STA (13:42)
[2024-03-24 14:02] LABS: Basophils % (A) 0 %; Eosinophils # (A) 0.2 k/uL (0-0.7); Eosinophils % (A) 1 %; HGB 14.4 gm/dL (11.4-16.0); Lymphocytes # (A) 2.1 k/uL (1.0-4.8); Lymphocytes % (A) 14 %; MCH 30.6 pg (25.0-35.0); MCHC 34.2 g/dL (31.0-37.0); MCV 89.3 fL (80.0-100.0); Mean Platelet Volume 7.7; Monocytes # (A) 0.6 k/uL (0-1.0); Monocytes % (A) 4 %; Neutrophils # (A) 11.8 k/uL (1.3-7.7); Neutrophils % (A) 79 %; Platelet Count 339 k/uL (150-450); RDW 13.4 % (11.5-15.5); WBC 14.9 k/uL (3.8-10.6)
[2024-03-24 14:14] LABS: ALT 25 U/L (4-34); AST 26 U/L (14-36); African American GFR (CKD) 83 (>60 ml/min/1.73 sqM); Albumin 4.3 g/dL (3.5-5.0); Alkaline Phosphatase 69 U/L (38-126); Anion Gap 9 mmol/L; Blood Urea Nitrogen 16 mg/dL (7-17); Calcium 10.2 mg/dL (8.4-10.2); Carbon Dioxide 27 mmol/L (22-30); Chloride 103 mmol/L (98-107); Glucose 131 mg/dL (74-99); Non-African American GFR(CKD) 72 (>60 ml/min/1.73 sqM); Potassium 2.9 mmol/L (3.5-5.1); Sodium 139 mmol/L (137-145); Total Bilirubin 0.7 mg/dL (0.2-1.3)
[2024-03-24 14:19] LABS: Appearance,Urine Cloudy (Clear); Bilirubin,Urine Negative (Negative); Blood,Urine Moderate (Negative); Color,Urine Light Yellow; Glucose,Urine (UA) Negative (Negative); Ketones,Urine 1+ (Negative); Leukocyte Esterase,Urine Negative (Negative); Mucus,Urine Rare /hpf; Nitrite,Urine Negative (Negative); Protein,Urine Trace (Negative); RBC,Urine >182 /hpf (0-5); Specific Gravity,Urine 1.019 (1.001-1.035); Squamous Epithelial Cell,Urine 5 /hpf (0-4); Urobilinogen,Urine <2.0 mg/dL (<2.0); WBC,Urine 3 /hpf (0-5)
--- NOTE | 2024-03-24 14:59 | CT ---
EXAMINATION TYPE: CT abdomen pelvis wo con DATE OF EXAM: 03/24/2024 COMPARISON: 09/28/2023 CLINICAL INDICATION: Female, 54 years old with history of L flank pain, decrease urine frequency, hx stones; PHH, L flank pain, decrease urine frequency, hx stones TECHNIQUE: CT scan of the abdomen and pelvis is performed without oral or IV contrast. CT DLP: 571.[address] CTDI: mGy Automated exposure control for dose reduction was used. FINDINGS: Within the limitations of a non-contrast study, the following observations are made. The lungs are clear. Gallbladder is normal and there is no gallstone, wall thickening, pericholecystic fluid or distention . There is no biliary ductal dilatation. There is no organomegaly of the liver, pancreas, spleen or adrenal glands. There is marked left hydronephrosis and hydroureter secondary to 2 adjacent 6-7 mm calcifications in the distal left ureter just proximal to the left UVJ. There are 3 nonobstructing right renal calcifi cations, the largest of which is 4 to 5 mm. The other calcifications are 1 -2 mm in size. There are 1 -2 additional nonobstructing left renal calcifications both measuring approximately 1 - 2 mm in size. The caliber of the abdominal aorta is normal and there is no retroperitoneal adenopathy or hemorrhage . The bowel loops are normal in caliber is no evidence of obstruction. No inflammatory changes are iden tified in the mesentery and there is no free intraperitoneal air or fluid. There is no pelvic mass, free fluid, abscess or adenopathy. The osseous structures and soft tissues are unremarkable. IMPRESSION: 1. Marked left hydronephrosis secondary due to adjacent 6 -7 mm obstructing calcifications in the dis flako left ureter as described above. 2. Multiple additional smaller nonobstructing renal calcifications bilaterally. [facility], , 03/24/2024 2:57 PM
[2024-03-24] MEDS: POTASSIUM CHLORIDE ER 20 MEQ TAB.ER PO STA (15:26)
[2024-03-24 15:34] VITALS: BP 150/88; PULSE 84; RESP 16; TEMP 97.9
== END 2024-03-24 15:36 | disposition home or self-care (01) ==
LOC: EC 12:25
DX: N13.2 Hydronephrosis with renal and ureteral calculous obstruction (principal)
CPT/HCPCS: 36415; 80053; 85025; 81001; 74176; 99284; 96374; 96375; J2270; J2405

== ENCOUNTER 2024-03-29 07:57 | Day surgery (SDC) | payer BC ==
[~2024-03-29 07:57] MED LIST changes: +LIDOCAINE 1% (10MG/ML) FOR IV START INTRADERMA PRN; +droPERidol 5 MG/2 ML VIAL IVP PRN
[2024-03-29] MEDS: LACTATED RINGERS 1,000 ML IV SCH (08:48)
[2024-03-29] MEDS: ONDANSETRON 4 MG/2 ML VIAL IVP ONE (08:49)
[2024-03-29] MEDS: DEXAMETHASONE SOD PHOSPHATE 4 MG/ML 1 ML VIAL IV ONE (08:49)
[2024-03-29] MEDS: SCOPOLAMINE 1 MG/72 HR PATCH TRANSDERM STA (08:53)
[2024-03-29] MEDS: IV FLUID CONTINUATION 1,000 ML IV ONE (09:00)
[2024-03-29] MEDS ORDERED: MIDAZOLAM 2 MG/2 ML VIAL ONE (09:15)
[2024-03-29] MEDS ORDERED: PROPOFOL 10 MG/ML 20 ML VIAL IV ONE (09:15)
[2024-03-29] MEDS ORDERED: fentaNYL (PF) 50 MCG/ML 2 ML AMP ONE (09:15)
[2024-03-29] MEDS ORDERED: LIDOCAINE 1% INJ 10MG/ML (20 ML MDV) ONE (09:15)
--- NOTE | 2024-03-29 09:21 | P.HPIHPCON ---
History of Present Illness H&P Date: 03/29/24 Chief Complaint: Left ureteral stone This is a 54-year-old female with history of a 7 mm left-sided distal stone, she is having intractable pain secondary to her stone. On CT there is possibly 2 distal stones. Discussed with her given her symptoms the option of left-sided ureteroscopy with holmium laser. Aware of the risk which includes but not limited to bleeding, infection, injury to the ureter Consent for Procedure: I have explained the operation/procedure to the patient, including the risks, benefits, side effects, alternative therapies (including not receiving the proposed treatment or service), the likelihood of the patient achieving his/her goals, and potential recuperation problems for the procedure/sedation/analgesia, as well as any blood products, if indicated. I also explained to the patient the risks, benefits and side effects of the alternatives, as well as the risks related to not receiving the proposed procedure, care, treatment, or services. Past Medical History Past Medical History: GERD/Reflux, Hypertension, Osteoarthritis (OA) Additional Past Medical History / Comment(s): herniated disc lower spine, Ongoing hx of low Potassium on replacement. Kidney stone. Hx gestational diabtetes. seen in ER 03/24/24 low K+ with oral replacement given History of Any Multi-Drug Resistant Organisms: None Reported Past Surgical History: Orthopedic Surgery, Tonsillectomy Additional Past Surgical History / Comment(s): bi lat knee arthroscopic, ganglion cyst rt knee x2 removal. lt wrist ganglion cyst removal. lithotripsy Past Anesthesia/Blood Transfusion Reactions: Postoperative Nausea & Vomiting (PONV) Additional Past Anesthesia/Blood Transfusion Reaction / Comment(s): long ago Smoking Status: Never smoker - Past Family History Mother Family Medical History: Hypertension, Pneumonia Additional Family Medical History / Comment(s): "Blood clot in uterus". Father Family Medical History: Cancer Additional Family Medical History / Comment(s): Brain cancer. Sister(s) Family Medical History: Deep Vein Thrombosis (DVT) Medications and Allergies Home Medications Medication Instructions Recorded Confirmed Type Medroxyprogesterone Acetate 150 mg IM Q90D 12/02/21 03/29/24 History [Depo-Provera] HYDROcodone/APAP 10-325MG [[place] 1 tab PO TID PRN 12/05/21 03/29/24 History 10-325] Ibuprofen 800 mg PO Q8H 12/05/21 03/29/24 History Betty D(Uknown Dose) 1 dose PO QAM PRN 10/01/23 03/29/24 History Ketorolac [Toradol] 10 mg PO Q8HR #15 tab 03/24/24 03/29/24 Rx Tamsulosin [Flomax] 0.4 mg PO DAILY #7 cap 03/24/24 03/29/24 Rx Indapamide [Lozol] 2.5 mg PO DAILY 03/25/24 03/29/24 History Potassium Chloride [Klor-Con M10] 10 meq PO DAILY 03/25/24 03/29/24 History Allergies Allergy/AdvReac Type Severity Reaction Status Date / Time No Known Allergies Allergy Verified 03/29/24 08:26 Surgical - Exam Vital Signs Temp Pulse Resp BP Pulse Ox 98.3 F 89 18 143/75 100 03/29/24 08:31 03/29/24 08:31 03/29/24 08:31 03/29/24 08:31 03/29/24 08:31 - General no distress, moderate pain - Eyes normal ocular movement, no pale - ENT normal nares, normal mucosa - Respiratory normal expansion, normal respiratory effort - Abdomen Abdomen: soft, non tender - Psychiatric oriented to time, oriented to person, oriented to place Assessment and Plan Assessment: OR for left-sided ureteroscopy, holmium laser lithotripsy, stone basketing and stent insertion
--- NOTE | 2024-03-29 10:02 | P.OP ---
Date of Procedure: 03/29/24 Preoperative Diagnosis: Left ureteral stone Postoperative Diagnosis: Same Procedure(s) Performed: Cystoscopy, left ureteroscopy, holmium laser lithotripsy, stone basketing Implants: None Anesthesia: LISAA Surgeon: Jordan Trinh Estimated Blood Loss (ml): 1 Pathology: other (Left ureteral stone) Condition: stable Disposition: PACU Indications for Procedure: This is a 54-year-old female with history of a 7 mm left-sided distal stone, she is having intractable pain secondary to her stone. On CT there is possibly 2 distal stones. Discussed with her given her symptoms the option of left-sided ureteroscopy with holmium laser. Aware of the risk which includes but not limited to bleeding, infection, injury to the ureter Operative Findings: Left distal ureteral stone Description of Procedure: Patient brought to the operating room, general anesthesia was induced. She was prepped and draped in sterile fashion placed in a dorsolithotomy position. Cystoscopy fitted through the 21 Wol[place] sheath was inserted per urethra, cystoscopy was performed showed no abnormality within the bladder. Attention was then carried to the left ureteral orifice, semirigid ureteroscope was inserted per urethra and advanced up the left ureteral orifice. A stone was encountered in the distal ureter. Using the holmium laser the stone was fragmented, stone fragments were removed using the stone basket. This time the ureteroscope was advanced all the way up to the UPJ which showed no additional stones or any abnormality, pullback ureteroscopy was performed showed no injury to the ureter or any sizable fragments. There was no edema at the site of the stone thus a stent was not placed. The bladder was emptied at the end of the case. Patient tolerated procedure was taken recovery in stable condition
[2024-03-29 10:05] VITALS: RESP 16; TEMP 97.4
--- NOTE | 2024-03-29 10:08 | FL ---
EXAMINATION TYPE: FL guidance operating room DATE OF EXAM: 03/29/2024 HISTORY: Fluoroscopy time Total dose area product (DAP) in uGy*m?, mGy*cm? (or similar): 0.03918 IMPRESSION: 1. Fluoroscopy time. [facility], , 03/29/2024 10:06 AM
[2024-03-29 11:35] VITALS: BP 144/80; PULSE 78
== END 2024-03-29 11:57 | disposition home or self-care (01) ==
LOC: OR 07:57
PROVIDERS: ATTEND Urology
DX: N20.1 Calculus of ureter (principal); I10 Essential (primary) hypertension; K21.9 Gastro-esophageal reflux disease without esophagitis; M19.90 Unspecified osteoarthritis, unspecified site; Z90.89 Acquired absence of other organs; Z79.1 Long term (current) use of non-steroidal anti-inflammatories (NSAID); Z79.899 Other long term (current) drug therapy
CPT/HCPCS: 52353; 81025; 82365; C1769; J2250; J1100; J0690; J2405; J2003; J3010; J2704

== ENCOUNTER → 2024-04-06 | Outpatient (CLI) | payer BC ==
[2024-04-06 18:23] LABS: Calcium 9.6 mg/dL (8.7-10.3); Uric Acid 5.4 mg/dL (2.9-7.7)
== END | disposition home or self-care (01) ==
LOC: LABWHC1 11:53
PROVIDERS: ATTEND Urology
DX: N20.0 Calculus of kidney (principal)
CPT/HCPCS: 36415; 82310; 84550